=== PATIENT | female | born 1935 | race Caucasian/White ===

== ENCOUNTER 2023-07-12 15:59 | Inpatient (IN) | payer OTHER, SELFPAY ==
[2023-07-12] VITALS (9 sets, daily range): BP systolic 132–188; BP diastolic 63–108; BMI 27.7
[2023-07-12 10:56] LABS: % Basophils 1.4 % (0-2); % Eosinophils 4.9 % (0-6); % Immature Granulocytes 0.5 % (0-0.5); % Lymphocytes 11.4 % (20.5-51.1); % Monocytes 11.5 % (1.7-9.3); % Neutrophils 70.3 % (42.2-75.2); Absolute Basophils 0.1 10^3/uL (0-0.2); Absolute Eosinophils 0.4 10^3/uL (0-0.7); Hematocrit 38.9 % (37.0-47.0); Hemoglobin 13.5 g/dL (12.0-16.0); Mean Corp Hgb Conc. 34.7 g/dL (33.0-37.0); Mean Corpuscular Hgb 31.4 pg (27.0-31.0); Mean Corpuscular Volume 90.5 fL (81.0-99.0); Mean Platelet Volume 10.1 fL (7.4-10.4); Nucleated Red Blood Cells % 0 %; Platelet Count 205 10^3/uL (130-400); Red Cell Dist. Width 12.3 % (11.5-14.5); White Blood Cell Count 8.5 10^3/uL (4.8-10.8)
[2023-07-12 11:12] LABS: ALT (SGPT) 22 U/L (0-35); AST (SGOT) 32 U/L (14-36); Albumin 3.9 g/dl (3.5-5.0); Alkaline Phosphatase 75 U/L (38-126); Blood Urea Nitrogen 17 mg/dl (7-17); Calcium 8.8 mg/dl (8.4-10.2); Carbon Dioxide 27 mmol/L (22-30); Chloride 102 mmol/L (98-107); Estimated Creatinine Clearance 50 ml/min; Glucose 112 mg/dl (70-99); Potassium 3.5 mmol/L (3.5-5.1); Sodium 135 mmol/L (135-145); Total Bilirubin 1.1 mg/dl (0.2-1.3); Total Protein 6.8 g/dl (6.3-8.2); eGFR > 60.00
--- NOTE | 2023-07-12 14:22 | W.PN.UPDATE ---
Update Note
Progress Note Update
Asked to evaluate the patient by the Dr. Pradhan regarding an atrial mass highly suspicious for myxoma.
Apparently the patient was recently admitted to [facility] for a CVA. On echo, an atrial mass was noted. Per the report, it is pedunculated and attached to the atrial septum which is consistent with myxoma characteristics. I do not have images to
review. It was recommended at that time that she have this surgically removed.
It sounds as if she was interested in a second opinion, refused surgery, and was discharged. She presents here for further evaluation.
While she may ultimately require removal, this can be done on an outpatient basis. Will evaluate the patient for surgery in our office on Friday with Dr. Immanuel Younger.
I briefly discussed perioperative expectations with the patient and her family and answered her questions. Will defer further acute management to her care team here. Will reevaluate on Friday for ultimate surgical planning.
This plan was discussed with Dr. Younger who is in agreement.
--- NOTE | 2023-07-12 14:43 | CONSULT.CT ---
Consultation
-
Requesting Provider: Dr. Pradhan
Performing Provider: Alfredito Kaur PA-C
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
Patient History
Physicians
Outpatient Propeller Engineer: Dr. Sheth
History of Present Illness
Patient is an 88-year-old female with a past medical history significant for hypertension, hyperlipidemia, von Willebrand disease, thrombocytopenia, anxiety, GERD, urge incontinence who presented from [facility] for dizziness and left-sided
facial droop to an outside hospital. Ultimately stroke alert was activated and the patient was noted to have acute stroke. As part of her workup echocardiogram was done which showed a large left atrial mass which was broadly attached to the left
atrial septum which is highly suspicious for left atrial myxoma. Given this finding coupled with the fact that she had an acute stroke it was recommended that she have this mass removed. She was also evaluated by hematology during her admission
for her von Willebrand disease. They felt that she did not have von Willebrand's per se but does have underlying platelet dysfunction. Following this the patient had apparent psychiatric event involving visual hallucinations and altered mental
status. Psychiatry evaluated the patient and was started on Depakote. After further discussions with the patient the family was decided that she would seek a second opinion for ultimate surgery. She was discharged from [facility] and reported here
to the ED for further evaluation.
Currently patient is resting comfortably in bed. She is accompanied by family at the bedside. She is very anxious about the diagnosis and is eager to move forward with surgery should it be recommended.
Past Medical History
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
Hypertension
Hyperlipidemia
Questionable von Willebrand disease
Thrombocytopenia
Anxiety
GERD
Urgent continence
Past Surgical History
Appendectomy
Bilateral cataracts
Cystocele
Rectocele
Hysterectomy
Oophorectomy
Tonsillectomy/adenoidectomy
Social History
Alcohol: None
Drug: None
Tobacco: Non-Smoker
Living: Assisted Living
Review of Systems
-
History Source: Patient and Family
General: Reports No Symptoms
HEENT: Reports No Symptoms
Respiratory: Reports No Symptoms
Cardiac: Reports No Symptoms
Abdomen/GI: Reports No Symptoms
: Reports No Symptoms
Musculoskeletal: Reports No Symptoms
Skin: Reports No Symptoms
Neurological: Reports CVA
Physical Exam
Vital Signs
Temp 97.9 F 07/12/23 10:35
Temp route: Oral 07/12/23 10:35
Pulse 71 07/12/23 14:00
Resp Rate 16 07/12/23 14:00
Blood pressure 178/65 07/12/23 14:00
Blood pressure extremity used: Left upper arm 07/12/23 14:00
Position: Lying 07/12/23 14:00
SaO2 98 07/12/23 14:00
Oxygen Mode of Delivery Room air 07/12/23 14:00
Actual Weight 77.5 kg 07/12/23 10:35
Labs
07/12/23 10:49
07/12/23 10:49
Exam
General: Well Developed, Well Nourished and No Apparent Distress
HEENT: Normocephalic and Anicteric
Respiratory: Clear
Cardiac: S1/S2 and Regular Rhythm
GI: Soft
Rectal: Deferred by Provider
Skin: Warm and Dry
Neuro: Awake, Alert and Oriented
Psych: Calm
Assessment / Plan
-
Her left atrial mass is highly suspicious for atrial myxoma based on available reports. Given that the patient is having complications associated with this mass she should have this removed barring contraindications based on comorbidities as well as
her advanced age. The patient tells me that she is absolutely interested in having this removed. This was also recommended by cardiac surgery at [facility] however the patient was interested in a second opinion.
The patient will need to complete preoperative workup including a CTA of the chest abdomen and pelvis. She will also need a left heart cath prior to surgical consideration. She has already had a transesophageal echocardiogram. We will obtain
these images. Recommend cardiology consultation as well as admission to the hospitalist service.
She will need to be anticoagulated given her acute stroke as well as for ultimate cardiopulmonary bypass. However given her questionable history of von Willebrand disease this may be complicated. Recommend hematology consult and low-dose heparin
drip if CTH is negative for hemorrhage and hematology agrees with that plan.
She also has had acute/subacute strokes based on MRI. Given the need for high dose anticoagulation with surgery, will involve neurology for clearance prior to proceeding. Consultation placed.
I discussed perioperative expectations with the patient and her family and answered their questions to their satisfaction. I also discussed this plan with the ED team who will consult hospitalist for admission. Plan on surgery early this week
pending workup, possibly Friday if all data is available. I discussed the above assessment & plan with Dr. Immanuel Younger who is in agreement. We will follow the patient and provide definitive recommendations regarding surgical timing once all data
is available.
Update 1600: Noted that she made her code status DNR on admission. This would need to be rescinded prior to any interventions. Will discuss.
Data Reviewed
-
EKG: Tracing Personally Visualized and interpreted
Labs: Labs Reviewed by me
Total Time Spent with Patient (in minutes): 60
--- NOTE | 2023-07-12 14:45 | ED.GENMED ---
History of Present Illness
General
Chief Complaint: Chest Problem
Source: patient and family
Time Seen by Provider: 07/12/23 10:40
Travel History
Have you had any contact with someone who has COVID-19?: No
Do you have any symptoms of coronavirus? Fever > 100 degrees, chills, cough, shortness of breath, sore throat, loss of taste or smell, muscle aches, or headache?: No
History of Present Illness
History of Present Illness:
88-year-old female who presents for evaluation wanting a second opinion. The patient was recently at [facility] and had been diagnosed with a stroke. She was later by studies to have an atrial myxoma. Patient was to have surgery but did
not want to have it there and after some [id number] decided to leave [place]. She presents here for second opinion as she would rather have her procedure done here. Patient denies any new symptoms. Patient does note that she has a history of
platelet disorder. She states she is not sure of what it is called but was told that it may be similar to von Willebrand's.
Past History
Past History
ED Past Medical History: CVA, HTN, Hypercholesterolemia and Other (Platelet disorder, diabetes insipidus, GERD, COPD)
Phy Exam
Physical Exam
Physical Exam:
CONSTITUTIONAL Patient alert and oriented to person, place and time. Well-appearing. Vital signs reviewed.
HEAD atraumatic, normocephalic.
EYES eyelids normal to inspection, Pupils equally round and reactive to light, Extraocular muscles intact, Conjunctiva normal, Sclera normal.
NECK normal range of motion, Trachea midline, no jugular venous distention.
RESPIRATORY CHEST No respiratory distress noted, Chest expansion equal, Bilateral breath sounds clear.
CARDIOVASCULAR regular rate and rhythm, Heart sounds normal.
ABDOMEN abdomen nontender, Bowel sounds normal. No distention.
BACK normal inspection, no obvious deformities
UPPER EXTREMITY range of motion normal, Motor strength normal, no cyanosis, no edema.
LOWER EXTREMITY range of motion normal, Motor strength normal, no cyanosis, no edema.
NEURO Speech normal, No focal motor deficits, Rogelio coma scale 15, Memory normal, Cranial Nerves intact to screening exam.
SKIN skin warm, dry, and normal in color.
Course
Orders/Labs/Results
Orders:
Orders
07/12/23 10:48
Electrocardiogram (*1) Urgent
Reason for Study: Chest Pain
IV Insert/Care/Rem.- Treatment PRN
07/12/23 10:49
Complete Blood Count/With Diff Urgent
Comprehensive Metabolic Panel Urgent
07/12/23 14:00
CT Head W/o Iv Contrast Urgent
Comment:
Reason For Exam: recent CVA. weakness
07/12/23 14:43
Ct Chest/Abd/Pel Angio W/Wo Iv Routine
Reason For Exam: cardiac surgical planning
07/12/23 Dinner
Cholesterol Lowering
At Your Request: Full Participation
Cholesterol Lowering: Sodium, 2 Gram
07/12/23 15:09
HEMATOLOGY CONSULT Routine
Consulting Provider: Immanuel Lloyd
Was physician already notified: Yes
Reason for consult: ? hx of platelet dysfunction vs. von willebrands? needs a/c for heart Sx
07/12/23 15:19
Consult Cardiology [CARDIOLOGY CONSULT] Routine
Consulting Provider: Yanick Aguilar
Was physician already notified: Yes
Reason for consult: left atrial mass, likely myxoma, planning surgery, needs C
07/12/23 15:41
Admit/Transfer Patient As Directed
Co-Sign Provider:
Level of Care: Inpatient admission
Assign to:: Telemetry
Physician / Group: marisa garland
Diagnosis: cardiac myxoma
Reason for Telemetry: Arrhythmia
Date to Stop Telemetry: 07/15/23
Time to Stop Telemetry: 11:00
Reason for Hospitalization: cardiac myxoma
Expected length of stay greater than two midnights?: Yes
ELOS- Estimated Length of Stay in days: 3
I certify the patient meets the requirements for IP care: Yes
07/12/23 15:42
Code Status As Directed
Resuscitation Status: Do not resuscitate
Reached after discussion with pt or family/Healthcare POA: Yes
Based on pt advanced directive or healthcare POA form: Yes
Decision communicated with: per pt with daughter present
DNR Bracelet Application ONCE
07/12/23 15:51
NEUROLOGY CONSULT Routine
Consulting Provider: Catalina Gomez
Was physician already notified: Yes
Reason for consult: Acute/subacute CVA, LA Mass, need clearance for anticogulation for CPB
07/12/23 17:13
Depakote ER 250 mg PO Q12H
Polyethylene Glycol Powder [Miralax] 8.5 grams PO DAILYPRN PRN
lorazepam 0.25 mg PO TID
07/12/23 17:13
Activity As Directed
Activity Level: With Assistance
Old Records Request [Obtain Records] As Directed
Dates of Information to be Released: any
Type of Information Requested: Entire Record
Comment: Heme consult from Dr todd [phone] [facility]
Pneumatic Compression Sleeves As Directed
Type: Knee high
Vital Signs As Directed
Frequency: Per unit guidelines
Ot Eval And Treat Routine
Pt Eval And Treat Routine
Activity Level: As Tolerated
DX Deep Vein Thrombosis Video Routine
07/12/23 20:00
Losartan [Cozaar] 25 mg PO DAILY@1999
Rosuvastatin Calcium [Crestor] 20 mg PO DAILY@1999
Sennosides [Senokot] 17.2 mg PO DAILY@1999
cycloSPORINE [Restasis 0.05% Ophthalmic Emulsion] 0 drops RIGHT EYE BID
07/12/23 22:00
Saline Mist DOSE drops NASAL HS
fluticasone propionate 1 spray NASAL HS
07/13/23 06:00
Basic Metabolic Panel IN AM
Complete Blood Count/With Diff IN AM
07/13/23 08:00
Calcium Carbonate/Vitamin D3 [Oscal 500 + D] 500 mg PO DAILY
Cyanocobalamin [Vitamin B-12] 1,000 mcg PO DAILY
Losartan [Cozaar] 50 mg PO DAILY
Omeprazole Suspension [Prilosec Baby Oral Suspension] 20 mg PO DAILY
Paroxetine [Paxil] 10 mg PO DAILY
paroxetine HCl 40 mg PO DAILY
07/13/23 12:00
Multivitamin [Theragran] 1 tablet PO NOON
07/14/23 06:00
Basic Metabolic Panel IN AM
Complete Blood Count/With Diff IN AM
07/15/23 06:00
Basic Metabolic Panel IN AM
Complete Blood Count/With Diff IN AM
07/15/23 11:00
DC Protocol for Telemetry ONCE
07/16/23 06:00
Basic Metabolic Panel IN AM
Complete Blood Count/With Diff IN AM
Abnormal Lab Results
07/12/23
10:49
MCH 31.4 H pg
(27.0-31.0)
Absolute Lymphs (auto) 1.0 L 10^3/uL
(1.2-3.4)
Absolute Monos (auto) 1.0 H 10^3/uL
(0.1-0.6)
Lymphocytes % 11.4 L %
(20.5-51.1)
Monocytes % 11.5 H %
(1.7-9.3)
Glucose 112 H mg/dl
(70-99)
07/12/23 10:49
07/12/23 10:49
Vital Signs
Initial and Last Documented VS:
Initial Vital Signs
Temp Pulse Resp BP Pulse Ox
97.9 F 78 20 188/83 98
07/12/23 10:35 07/12/23 10:35 07/12/23 10:35 07/12/23 10:35 07/12/23 10:35
Last Documented Vital Signs
Temp Pulse Resp BP Pulse Ox
98.3 F 83 18 132/84 96
07/12/23 17:19 07/12/23 17:19 07/12/23 17:19 07/12/23 17:19 07/12/23 17:19
MDM/Problems Addressed
MDM/Problems Addressed:
Atrial myxoma, recent CVA
*Pulse Oximetry
Patient hypoxic: no
*EKG
Interpreted by ED Provider?: Yes
Interpretation: normal
Rate: normal
Interval: normal interval
QRS Pattern: normal QRS
Ischemia: no ischemia
*Permit Specialist Interpretation
Rate: normal
Interpretation: normal
Rhythm: sinus
*Critical Care Note
Total Time (30-74mins, 75-104mins- exclusive of procedures): 30 minutes
Data Reviewed
Review of Other/Old Records Reveals: Discharge Summary (Discharge summary obtained and reviewed from [place])
Source: patient
Prescriptions/Medications Considered But Not Given:
Considered Xarelto but CT surgery recommends IV heparin since it is reversible.
Patient Management
Discussion with other providers: Hospitalist and Cosmetic Sales Advisor (Case discussed with CT surgery)
Escalation/DeEscalation of care consider admission/obs:
88-year-old female who presents as above. No acute symptoms but case discussed with CT surgery who recommends admission for likely surgery. Also recommends IV heparin if CT head negative. Hospitalist agreed for heparin. Admit
ED Attending Note
-
Portions of this chart may have been created with voice recognition software.� Occasional wrong word or��sound alike� substitutions may have occurred due to the inherent limitations of voice recognition software.
Discharge Plan
Departure
Patient Disposition: Admit
Date of Disposition: 07/12/23
Time of Disposition: 14:45
Admit to: IVU
Presentation/result/management discussed w/ accepting MD/DO: Hospitalist
Discharge Problem:
Atrial myxoma
Interventions
Interventions:
*Risk Screen - Suicide Last Done: 07/12/23 10:35
*General Assessment Last Done: 07/12/23 10:35
*Neglect/Abuse Screening Last Done: 07/12/23 10:35
*ED COVID-19 Vaccine History Last Done: 07/12/23 11:00
*Nursing Disposition Last Done: 07/12/23 17:11
ED- Cardiac Assessment Last Done: 07/12/23 11:00
ED- Pulmonary Assessment Last Done: 07/12/23 11:00
Discharge Date and Time
Discharge Date/Time: 07/12/23 17:12
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
--- NOTE | 2023-07-12 17:07 | CON.CAR ---
Consultation
Consultation Request
Date/Time Consultation Requested: 07/12/23
Date/Time Consultation Performed: 07/12/23
Requesting Provider: Carisa
Performing Provider: Jeff
Reason for Consultation: LA mass
Medical History
-
Chief Complaint: Recent CVA, LA mass
History of Present Illness:
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 She apparently declined surgery at that time and was discharged back to her residence at [facility].
Presented today because she would like a second opinion regarding the LA mass.
Currently being worked up by CT surgery with tentative plan for mass resection during this admission. We are asked to help facilitate left heart catheterization. Of note CTA of the chest abdomen pelvis here confirmed 3.2 cm left atrial mass.
Overall she seems to be asymptomatic from cardiovascular perspective. Any chest pain or pressure, shortness of breath at rest is observed, no show edema. No palpitations.
Discussed with patient and family at bedside
PMHx:
LA mass
CVA
CAD
HTN
HLD
CKD
platelet disorder NOS
Past Medical History
Past Medical History: Other (as above)
Past Surgical History: Other (as above)
Social History
Tobacco: Non-Smoker
Family History
Family History: Reviewed & Not Pertinent
Allergies / Home Medications
Medication Instructions Recorded Confirmed Type
Aspir-81 81 mg PO DAILY 07/12/23 07/12/23 History
Depakote ER 250 mg PO Q12H 07/12/23 07/12/23 History
biotin 5,000 mcg chewable tablet 5,000 mcg PO DAILY 07/12/23 07/12/23 History
calcium carbonate 600 mg-vitamin 1 tab PO DAILY 07/12/23 07/12/23 History
D3 20 mcg (800 unit) tablet
(Caltrate with Vitamin D3)
cyanocobalamin (vitamin B-12) 1,000 mcg PO .SEE BELOW 07/12/23 07/12/23 History
1,000 mcg tablet
cyclosporine 0.05 % eye drops in a 1 drp RIGHT EYE BID 07/12/23 07/12/23 History
dropperette (Restasis)
fluticasone propionate 50 1 spray intranasal HS 07/12/23 07/12/23 History
mcg/actuation nasal
spray,suspension
lorazepam 0.25 mg PO TID 07/12/23 07/12/23 History
losartan 25 mg tablet 25 mg PO DAILY@199907/12/23 07/12/23 History
losartan 50 mg tablet 50 mg PO DAILY 07/12/23 07/12/23 History
hmudzpwhmoav-nvzsvbbi-nvundd tablet 1 tab PO .MID-DAY 07/12/23 07/12/23 History
omeprazole 20 mg capsule,delayed 20 mg PO DAILY 07/12/23 07/12/23 History
release
paroxetine HCl 10 mg tablet 10 mg PO DAILY 07/12/23 07/12/23 History
paroxetine HCl 40 mg tablet 40 mg PO DAILY 07/12/23 07/12/23 History
polyethylene glycol 3350 17 gram 8.5 g PO DAILYPRN PRN constipation 07/12/23 07/12/23 History
oral powder packet (Miralax)
rosuvastatin 20 mg tablet 20 mg PO DAILY@199907/12/23 07/12/23 History
sennosides 8.6 mg capsule (senna) 17.2 mg PO DAILY@199907/12/23 07/12/23 History
sodium chloride 0.65 % nasal spray 1 spray intranasal HS 07/12/23 07/12/23 History
aerosol (Saline Nasal)
Review of Systems
-
History Source: Patient
All other systems: Negative unless noted
Physical Exam
Vital Signs
Temp Pulse Resp BP Pulse Ox
97.9 F 71 16 178/65 98
07/12/23 10:35 07/12/23 14:00 07/12/23 14:00 07/12/23 14:00 07/12/23 14:00
Lab Results
07/12/23 10:49
07/12/23 10:49
Physical Exam
General: Well Developed
HEENT: Normocephalic
Respiratory: Clear and Non Labored Respirations
Cardiac: S1/S2 and Regular Rhythm
Breast: Deferred by me
GI: Soft
Musculoskeletal: No Edema
Skin: Warm and Dry
Neuro: AO x 3
Psych: Calm
Impression / Plan
-
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
Impression:
LA mass
Recent CVA
CAD
HTN
HLD
CKD
platelet disorder NOS
Plan:
-Recent CVA, workup at [place] including JOSSUE reportedly identified SHARON mass suspected to be myxoma
-Tentatively planned for mass resection with CT surgery to prevent recurrent stroke
-We will arrange for [facility] 07/14/23 to help with surgical planning
Data Reviewed
-
EKG: Tracing Personally Visualized and interpreted
CT Scan: Report Reviewed by me
Labs: Labs Reviewed by me
--- NOTE | 2023-07-12 17:30 | PTCARENOTE ---
Pt. arrived from ED to unit via stretcher with DIL at bedside. Pt. ambulated with assist of one to bed. Pt. with no c/o pain and VSS at this time. Call el with in reach.
[2023-07-12] MEDS: RESTASIS 0.05% OPHTHALMIC EMULSION 1 DROPS RIGHT EYE (20:45)
[2023-07-12] MEDS: CRESTOR 20 MG PO (20:45)
[2023-07-12] MEDS: SENOKOT 17.1999999999999993 MG PO (20:45)
[2023-07-12] MEDS: COZAAR 25 MG PO (20:46)
[2023-07-12] MEDS: DEPAKOTE (12 HR RELEASE) 250 MG PO (20:48)
[2023-07-12] MEDS: OCEAN, SALINE MIST 1 SPRAYS NASAL (21:02)
[2023-07-12] MEDS: ATIVAN 0.25 MG PO (21:08)
[2023-07-13] VITALS (7 sets, daily range): BP systolic 103–172; BP diastolic 54–70; BMI 27.5
[2023-07-13] MEDS: APRESOLINE 5 MG IV ×2 (04:46→11:31)
[2023-07-13 08:10] LABS: % Basophils 0.9 % (0-2); % Eosinophils 7.7 % (0-6); % Immature Granulocytes 0.3 % (0-0.5); % Lymphocytes 15.7 % (20.5-51.1); % Monocytes 12.2 % (1.7-9.3); % Neutrophils 63.2 % (42.2-75.2); Absolute Basophils 0.1 10^3/uL (0-0.2); Absolute Eosinophils 0.6 10^3/uL (0-0.7); Absolute Lymphocytes 1.2 10^3/uL (1.2-3.4); Absolute Neutrophils 4.9 10^3/uL (1.4-6.5); Hematocrit 38.5 % (37.0-47.0); Hemoglobin 12.9 g/dL (12.0-16.0); Mean Corp Hgb Conc. 33.5 g/dL (33.0-37.0); Mean Corpuscular Hgb 30.8 pg (27.0-31.0); Mean Corpuscular Volume 91.9 fL (81.0-99.0); Mean Platelet Volume 10.8 fL (7.4-10.4); Nucleated Red Blood Cells % 0 %; Platelet Count 200 10^3/uL (130-400); Red Blood Cell Count 4.19 10^6/uL (4.20-5.40); Red Cell Dist. Width 12.2 % (11.5-14.5); White Blood Cell Count 7.8 10^3/uL (4.8-10.8)
[2023-07-13] MEDS: ATIVAN 0.25 MG PO ×3 (08:43→22:13)
[2023-07-13] MEDS: PAXIL 40 MG PO (08:43)
[2023-07-13] MEDS: DEPAKOTE (12 HR RELEASE) 250 MG PO ×2 (08:43→20:31)
[2023-07-13] MEDS: PROTONIX 40 MG PO (08:43)
[2023-07-13] MEDS: COZAAR 50 MG PO (08:44)
[2023-07-13] MEDS: RESTASIS 0.05% OPHTHALMIC EMULSION 1 DROPS RIGHT EYE ×2 (08:44→20:32)
[2023-07-13] MEDS: PAXIL 10 MG PO (08:44)
[2023-07-13] MEDS: OSCAL 500 + D 500 MG PO (08:44)
[2023-07-13] MEDS: VITAMIN B-12 1000 MCG PO (08:44)
[2023-07-13 08:58] LABS: Blood Urea Nitrogen 15 mg/dl (7-17); Calcium 8.7 mg/dl (8.4-10.2); Carbon Dioxide 26 mmol/L (22-30); Chloride 102 mmol/L (98-107); Estimated Creatinine Clearance 49 ml/min; Glucose 111 mg/dl (70-99); Potassium 3.9 mmol/L (3.5-5.1); Sodium 135 mmol/L (135-145); eGFR > 60.00
[2023-07-13 09:02] LABS: Hematocrit 36.5 % (37.0-47.0); Hemoglobin 12.5 g/dL (12.0-16.0); Mean Corp Hgb Conc. 34.2 g/dL (33.0-37.0); Mean Corpuscular Hgb 30.9 pg (27.0-31.0); Mean Corpuscular Volume 90.3 fL (81.0-99.0); Mean Platelet Volume 10.6 fL (7.4-10.4); Platelet Count 209 10^3/uL (130-400); Red Blood Cell Count 4.04 10^6/uL (4.20-5.40); Red Cell Dist. Width 12.2 % (11.5-14.5); White Blood Cell Count 7.6 10^3/uL (4.8-10.8)
[2023-07-13 09:23] LABS: APTT 26.7 Sec (23.4-35.0)
[2023-07-13] MEDS: HEPARIN 25000 UNITS/250 ML IV (09:38)
--- NOTE | 2023-07-13 11:11 | W.PN.UPDATE ---
Update Note
Progress Note Update
I had a long discussion with Mrs. velasco and then her daughter Edna on the phone. They both would like to move forward fully understanding that this is a high risk procedure without appreciable gain aside from prevention of strokes in the future. I
did stress that our STS calculator is not designed to convey the risk in this category, but I gave them a 3-5% risk of mortality, 2-3 % risk of stroke, a2-3% risk of renal failure, and 5% risk of bleeding and need for blood products is very likely
given her pre-existing platelet dysfunction. They voiced understanding. Additionally, during and perioperatively, her DNR status will need to be rescinded which they have agreed too. For now, I am still gathering her JOSSUE and awaiting her LHC.
However, the family would like to move forward with me as her surgeon on Friday understanding she would be a 'to follow' case. I will sit down with her and her family once all our investigations are complete.
[2023-07-13] MEDS: THERAGRAN 1 TABLET PO (11:31)
[2023-07-13] MEDS: ATIVAN 0.5 MG PO (12:27)
--- NOTE | 2023-07-13 13:03 | PTCARENOTE ---
Report given to IVU nurse Jill. Pt. transferred via bed by this nurse and PCT. Pt. stable at time of discharge, no c/o pain. Daughter at bedside.
--- NOTE | 2023-07-13 13:06 | W.PN.UPDATE ---
Update Note
Progress Note Update
88yo lady who was admitted with atrial mixoma, awaiting surgical removal. She has series of strokes 1-2 weeks ago.
Patient is unable to give me any meaningful history as she is very anxious, weeping and sobbing but cannot tell me why. I called her daughter who was not available so I left a message to call back.
Patient is on significant amount of psychotropic medications including Paxil 50 mg daily, Ativan 0.25 tid and Depakote 250 bid; Depakote was added recently by a psychiatrist at [facility].
I suspect she has underlying depression or another psychiatric condition but I am awaiting information from her daughter.
For now I will order Depakote level and order 0.5 mg of Ativan as needed for agitation or severe anxiety.
We will F/U through the department.
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
[2023-07-13] MEDS: MIRALAX 8.5 GRAMS PO (16:08)
[2023-07-13 16:48] LABS: APTT 91.8 Sec (23.4-35.0)
[2023-07-13] MEDS: SENOKOT 17.1999999999999993 MG PO (20:31)
[2023-07-13] MEDS: COZAAR 25 MG PO (20:31)
[2023-07-13] MEDS: CRESTOR 20 MG PO (20:33)
[2023-07-13] MEDS: OCEAN, SALINE MIST 1 SPRAYS NASAL (22:12)
[2023-07-13 23:27] LABS: APTT 157.5 Sec (23.4-35.0)
--- NOTE | 2023-07-13 23:47 | CON.ONC ---
Impression
Impression
HX of bleeding tendency w/ abnormal platelet aggregation studies
Plan
Plan
Given urgency for operative intervention would continue with anticoagulation on heparin with plans to judiciously allow for platelet transfusions for any unanticipated bleeding associated with surgery given that preop labs @ note normal CBC and
PTT -- she has no unanticipated evidence of unusual ecchymotic areas at venipuncture sites and denies any abnormal bleeding from GI/ tract. DDAVP would be avoided for risk of vascular thrombosis-- F7 bypass agents would be reasonable if platelet
transfusion were not effective. Will followup during her stay
Patient History
History of Present Illness
88yo WF evaluated earlier in the day for hx of bleeding disorder. 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
Records available thru [employer] system noted evaluation by Dr Hartmann, Heme/Onc @ [facility] for which a hx of abnormal platelet aggregation studies were noted when she was cared for by Dr Pittman 15 + years ago. She herself notes no defineable problem other
than having multiple hematology evaluations none of which coordinated a common diagnosis. She recalls personally having excessive bleeding post T& A @ age 14yo though she did not require transfusions and surgical intervention stopped the bleeding.
She did not require iron or transfusions thruout her menstruating life nor was childbirth X 2 complicated by need for transfusion therapy. In later menopause she underwent YAZMIN/BSO for excessive bleeding for which she self - donor directed pRBCs
and received the day following her procedure. She notes her single sister developed bleeding issues in her later years but recall a specific diagnoses. Neither of her children had bleeding disorder (son in COVID 3 years ago).
Past-Medical/Surgical History
CVA/DJD/CKD/GERD/HTN
Patient Medication
Medication Instructions Recorded Confirmed Last Taken Type
Aspir-81 81 mg PO DAILY Blood Clot 07/12/23 07/12/23 Unknown History
Prevention/Tx
Depakote ER 250 mg PO Q12H 07/12/23 07/12/23 Unknown History
Anxiety/depression/paranoia
biotin 5,000 mcg chewable tablet 5,000 mcg PO DAILY Supplement 07/12/23 07/12/23 Unknown History
calcium carbonate 600 mg-vitamin 1 tab PO DAILY Supplement 07/12/23 07/12/23 Unknown History
D3 20 mcg (800 unit) tablet
(Caltrate with Vitamin D3)
cyanocobalamin (vitamin B-12) 1,000 mcg PO DAILY Supplement 07/12/23 07/12/23 Unknown History
1,000 mcg tablet
cyclosporine 0.05 % eye drops in a 1 drp RIGHT EYE BID Eye Condition 07/12/23 07/12/23 Unknown History
dropperette (Restasis)
fluticasone propionate 50 1 spray intranasal HS Allergies 07/12/23 07/12/23 Unknown History
mcg/actuation nasal
spray,suspension
lorazepam 0.25 mg PO TID ANXIETY/INSOMNIA 07/12/23 07/12/23 Unknown History
losartan 25 mg tablet 25 mg PO DAILY@2000 Blood Pressure 07/12/23 07/12/23 Unknown History
losartan 50 mg tablet 50 mg PO DAILY Blood Pressure 07/12/23 07/12/23 Unknown History
odyfrhkt-bdbc-olrn 8 mg-folic 400 1 tab PO DAILY Supplement 07/12/23 07/12/23 Unknown History
mcg-K 50 mcg-lutein 300 mcg tablet
(Centrum Silver Women)
omeprazole 20 mg capsule,delayed 20 mg PO DAILY Gastrointestinal 07/12/23 07/12/23 07/12/23 History
release Issue
paroxetine HCl 10 mg tablet 10 mg PO DAILY 07/12/23 07/12/23 Unknown History
Anxiety/depression/paranoia
paroxetine HCl 40 mg tablet 40 mg PO DAILY 07/12/23 07/12/23 Unknown History
Anxiety/depression/paranoia
polyethylene glycol 3350 17 gram 8.5 g PO DAILYPRN PRN constipation 07/12/23 07/12/23 Unknown History
oral powder packet (Miralax)
rosuvastatin 20 mg tablet 20 mg PO DAILY@1999 High 07/12/23 07/12/23 Unknown History
Cholesterol
sennosides 8.6 mg tablet (senna) 17.2 mg PO DAILY@1999 Constipation 07/12/23 07/12/23 Unknown History
sodium chloride 0.65 % nasal spray 1 spray intranasal HS nasal 07/12/23 07/12/23 Unknown History
aerosol (Saline Nasal) congestion
Active Medications
Generic Name Dose Route Start Last Admin
Trade Name Freq PRN Reason Stop Dose Admin
Calcium/Vitamin D 500 mg 07/13/23 08:00 07/13/23 08:44
Calcium Carbonate 500 Mg/Vitamin D 5 Mcg (200 Units) Tablet PO 08/10/23 07:59 500 mg
DAILY MARIANA Administration
Cyanocobalamin 1,000 mcg 07/13/23 08:00 07/13/23 08:44
Cyanocobalamin 1,000 Mcg Tablet PO 08/10/23 07:59 1,000 mcg
DAILY MARIANA Administration
Cyclosporine 0 drops 07/12/23 20:00 07/13/23 20:32
Cyclosporine 0.05% (Ophthalmic Emulsion) 10 Drop Droperette RIGHT EYE 08/09/23 19:59 1 drops
BID MARIANA Administration
Divalproex Sodium 250 mg 07/12/23 20:00 07/13/23 20:31
Divalproex 250 Mg Delayed Release (12 Hr) Tablet PO 08/09/23 19:59 250 mg
Q12H MARIANA Administration
Heparin Sodium 6,000 units 07/13/23 08:37
Heparin 80 Units/Kg Rebolus-Do Not Discard IV 08/10/23 08:36
PRN PRN
PTT < OR = 64 seconds
Heparin Sodium 3,000 units 07/13/23 08:38
Heparin 40 Units/Kg Rebolus-Do Not Discard IV 08/10/23 08:37
PRN PRN
PTT = 64.1 to 72.9 seconds
Hydralazine HCl 5 mg 07/13/23 04:39 07/13/23 11:31
Hydralazine 20 Mg/Ml Vial IV 08/10/23 04:38 5 mg
Q4HPRN PRN Administration
sbp>170
Heparin Sodium 25,000 units in 250 mls @ 0 mls/hr 07/13/23 08:30 07/13/23 09:38
Heparin 69439 Units/250 Ml IV 250 mls
PER PROTOCOL MARIANA Administration
Protocol
Per Protocol
Lorazepam 0.25 mg 07/12/23 22:00 07/13/23 22:13
Lorazepam 0.5 Mg Tablet PO 08/09/23 21:59 0.25 mg
TID MARIANA Administration
Lorazepam 0.5 mg 07/13/23 13:15
Lorazepam 0.5 Mg Tablet PO 08/10/23 13:59
Q6H PRN
severe anxiety or agitation
Losartan Potassium 50 mg 07/13/23 08:00 07/13/23 08:44
Losartan 50 Mg Tablet PO 08/10/23 07:59 50 mg
DAILY MARIANA Administration
Losartan Potassium 25 mg 07/12/23 20:00 07/13/23 20:31
Losartan 25 Mg Tablet PO 08/09/23 19:59 25 mg
DAILY@2000 MARIANA Administration
Multivitamins Therapeutic 1 tablet 07/13/23 12:00 07/13/23 11:31
Multivitamin Tablet PO 08/10/23 11:59 1 tablet
NOON MARIANA Administration
Pantoprazole Sodium 40 mg 07/13/23 08:00 07/13/23 08:43
Pantoprazole 40 Mg Delayed Release Tablet PO 08/10/23 07:59 40 mg
DAILY MARIANA Administration
Paroxetine HCl 40 mg 07/13/23 08:00 07/13/23 08:43
Paroxetine 20 Mg Tablet PO 08/10/23 07:59 40 mg
DAILY MARIANA Administration
Paroxetine HCl 10 mg 07/13/23 08:00 07/13/23 08:44
Paroxetine 10 Mg Tablet PO 08/10/23 07:59 10 mg
DAILY MARIANA Administration
Polyethylene Glycol 8.5 grams 07/12/23 17:13 07/13/23 16:08
Polyethylene Glycol Powder 17 Grams Packet PO 08/09/23 17:12 8.5 grams
DAILYPRN PRN Administration
constipation
Rosuvastatin Calcium 20 mg 07/12/23 20:00 07/13/23 20:33
Rosuvastatin (Crestor) 20 Mg Tablet PO 08/09/23 19:59 20 mg
DAILY@1999 MARIANA Administration
Sennosides 17.2 mg 07/12/23 20:00 07/13/23 20:31
Sennosides (Senokot) 8.6 Mg Tablet PO 08/09/23 19:59 17.2 mg
DAILY@1999 MARIANA Administration
Sodium Chloride 0 sprays 07/12/23 22:00 07/13/23 22:12
Sodium Chloride 0.65% Nasal [place] 45 Ml Bottle NASAL 08/09/23 21:59 1 sprays
HS MARIANA Administration
Sodium Chloride 0 flush 07/12/23 19:00
Sodium Chloride 0.9% (Flush) Syringe IV 08/09/23 18:59
PER PROTOCOL MARIANA
Review of Systems
-
History Source: Patient
All Other Systems: Reviewed and Negative
Physical Exam
-
General: No Apparent Distress
HEENT: Moist Mucous Membranes
Cardiology: Normal Sinus Rhythm and Murmur
Pulmonary: Clear
GI: Soft and Normal Bowel Sounds
Extremities: Pulses Present
Neurology: Non Focal
Labs
Lab Results
WBC 7.6 10^3/uL (4.8-10.8) 07/13/23 08:47
RBC 4.04 10^6/uL (4.20-5.40) L 07/13/23 08:47
Hgb 12.5 g/dL (12.0-16.0) 07/13/23 08:47
Hct 36.5 % (37.0-47.0) L 07/13/23 08:47
MCV 90.3 fL (81.0-99.0) 07/13/23 08:47
MCH 30.9 pg (27.0-31.0) 07/13/23 08:47
MCHC 34.2 g/dL (33.0-37.0) 07/13/23 08:47
RDW 12.2 % (11.5-14.5) 07/13/23 08:47
Plt Count 209 10^3/uL (130-400) 07/13/23 08:47
MPV 10.6 fL (7.4-10.4) H 07/13/23 08:47
Abs Immat Gran (auto) 0.0 10^3/uL (0-0.05) 07/13/23 06:53
Absolute Neuts (auto) 4.9 10^3/uL (1.4-6.5) 07/13/23 06:53
Absolute Lymphs (auto) 1.2 10^3/uL (1.2-3.4) 07/13/23 06:53
Absolute Monos (auto) 1.0 10^3/uL (0.1-0.6) H 07/13/23 06:53
Absolute Eos (auto) 0.6 10^3/uL (0-0.7) 07/13/23 06:53
Absolute Basos (auto) 0.1 10^3/uL (0-0.2) 07/13/23 06:53
Immature Gran % 0.3 % (0-0.5) 07/13/23 06:53
Neutrophils % 63.2 % (42.2-75.2) 07/13/23 06:53
Lymphocytes % 15.7 % (20.5-51.1) L 07/13/23 06:53
Monocytes % 12.2 % (1.7-9.3) H 07/13/23 06:53
Eosinophils % 7.7 % (0-6) H 07/13/23 06:53
Basophils % 0.9 % (0-2) 07/13/23 06:53
Creatinine 0.8 mg/dL (0.6-1.0) 07/13/23 06:53
Vital Signs
Vital Signs
Temp Pulse Resp BP Pulse Ox
97.8 F 86 20 118/64 98
07/13/23 19:12 07/13/23 20:31 07/13/23 19:12 07/13/23 20:31 07/13/23 22:39
[2023-07-14] VITALS (16 sets, daily range): BP systolic 115–176; BP diastolic 46–91; PULSE 71; O2SAT 98; BMI 27.9
--- NOTE | 2023-07-14 00:53 | PTCARENOTE ---
Aware she is NPO after mdn. No complaints of pain or discomfort. Anxious and forgetful at times. SR on the monitor in the 60's-80's.
[2023-07-14] MEDS: HEPARIN 25000 UNITS/250 ML IV ×2 (03:35→22:52)
[2023-07-14 05:33] LABS: B.E. 2.8 mmol/L; HCO3 25.9 mmol/L (21-28); O2 Saturation % 97.1 % (94-98); PCO2 34 mmHg (32-35); PO2 80 mmHg (83-108); pH 7.49 (7.35-7.45)
--- NOTE | 2023-07-14 06:24 | W.PN.CT ---
Today's Communication / Plan
-
Plan:
-Cont. current medical management per primary team
-Cont. current meds (heparin gtt, Crestor)
-Will need to hold CROW-I/ARBs (currently on Losartan) at least 24hrs prior to surgery
-Will need reversal of current DNR status
-Ongoing preop evaluation (awaiting [facility] imaging from [facility])
-[facility] today, 07/14/23
-For LA myxoma resection via sternotomy (not a good candidate for non-invasive myxoma resection per Dr. Younger) possibly tomorrow, 07/15/[address] Younger
-Will cont. to closely monitor
Assessment / Plan
-
Assessment:
88 y/o women, resident of [facility], with recent (07/04/23) admission @ [facility] for ischemic stroke with left hemiparesis. Found to have LA mass/Myxoma per [facility] @ [facility].
Presents to -ED on 07/12/23 for second opinion on surgical intervention of LA myxoma
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 left hemiparesis (has resolved)
-Hypertension
-Hyperlipidemia
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
-Thrombocytopenia
-Anxiety
-GERD/Hiatal hernia (large per CTA of chest @ ))
-Chronic urinary incontinence
-Renal calculi
-CKD stage 3A
-OA
-Dry eyes syndrome
-Ambulatory dysfunction
-Anxiety/depression/paranoia (on Paxil, Ativan and Depakote)
-S/p Appendectomy
-S/p Bilateral cataracts
-S/P Cystocele
-S/p Rectocele
-S/p Hysterectomy
-S/P Oophorectomy
-S/p Tonsillectomy/adenoidectomy
Discussed patient care with: Cardiology, Nursing, Respiratory Therapy, Pharmacy and Care Team
Subjective
-
Date of Service: July 14, 2023
Pt offers no complaints, no issues overnight
Objective Data
-
APTT Cancelled 07/14/23 06:00
Vital Signs
Vital Signs
Temp Pulse Resp BP Pulse Ox
97.7 F 64 18 152/67 96
07/14/23 03:38 07/14/23 06:00 07/14/23 03:38 07/14/23 03:34 07/14/23 03:38
CT Intake/Output/Weight
07/13/23 07/13/23 07/14/23
06:59 18:59 06:59
Intake Total 480 / 480 950 / 950
Output Total 500 / 500 200 / 200
Balance -20 / -20 750 / 750
SaO2: 96 (RA)
Physical Exam
-
General: Awake, Oriented and AOx3
Cardiovascular: Regular rate & rhythm and No Murmurs
Respiratory: Clear
Extremities: No Edema
Data Reviewed
-
Lab Results: Results Reviewed
Medications: Active Meds Reviewed
Chest X-Ray: Report Reviewed and Image Reviewed
ECG: Report Reviewed and Image Reviewed
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
--- NOTE | 2023-07-14 07:29 | W.PN.NEURO.1 ---
Today's Communication / Plan
-
.
Subjective/Objective
Subjective Data
Date of Service: July 14, 2023
CC: none
HPI: This is an 88-year-old woman who presented to [facility] on 07/12/2023. Ms. Terry was diagnosed with bihemispheric strokes and LA mass at [facility] in 07/04/2023.
Ms. Terry reports no complaints. She had nor recurrent since the admission. No reports of headache, change in vision, motor or sensory deficits.
EKG: NSR
Labs:INR-1.11.
CT head(07/12/2023)-large old right basal ganglia infarct. � There is mild subcortical, deep, and periventricular white matter low-attenuation, compatible with changes of chronic small vessel ischemic disease.
PMZ: bihemispheric strokes(07/04/2023), vWD, LA myxoma, CAD, HTN, DLP, CKD, hiatal hernia, nephrolithiasis, VIVIEN, insomnia
PSH: BL cataract surgery, YAZMIN, cystocele/rectocele repair, appendectomy, tonsillectomy, BL myringostomy
FH: mother-colon CA; vWD
SH: nonsmoker; ; lives at [facility], retired
All: Clarithromycin,
ROS:Constitutional: Negative. Negative for chills, fever and unexpected weight change.
HENT: Negative for ear pain, hearing loss, tinnitus and trouble swallowing.
Eyes: Negative. Negative for photophobia, pain and visual disturbance.
Respiratory: Negative for cough, choking and shortness of breath.
Cardiovascular: Negative for chest pain, palpitations and leg swelling.
Gastrointestinal: positive for constipation.
Endocrine: Negative. Negative for cold intolerance.
Genitourinary: Negative for dysuria, flank pain and urgency.
Musculoskeletal: Negative for back pain, gait problem, neck pain and neck stiffness.
Skin: Negative for rash.
Allergic/Immunologic: Negative. Negative for immunocompromised state.
Neurological: Negative for dizziness, tremors, seizures, speech difficulty, numbness and headaches.
Psychiatric/Behavioral: positive for insomnia, anxiety
General: Well developed. In no acute distress.
Cardio: Regular rate and rhythm without murmur. Extremities are without cyanosis or edema.
Neuro:
Mental Status: Alert, oriented to person, place, and date. Normal attention and recall. Good fund of knowledge. Follows complex requests across the midline. Comprehension, naming, and repetition intact. Anxious mood
Cranial Nerves: . Pupils are equally round, surgical. EOMs full. Visual peralta full to confrontation. No ptosis. No nystagmus. V1-V3 intact to light touch and pinprick bilaterally, symmetric. Face symmetric. Impairedhearing AU. The palate
elevated well. SCMs and traps 5/5. Tongue midline. No dysarthria.
Motor: Normal bulk and tone. No pronator or arm drift. Strength 5/5 throughout. No clonus.
Reflexes: 3+ throughout the upper extremities and 3+knees. Plantar responses flexor bilaterally.+ BL grasp
Sensory: Normal pinprick, vibration and JPS.
Coordination: No dysmetria or tremor.
Gait: deferred
Bl pes cavus, hummer toes
Assessment and Plan:
I. Subacute bihemispheric embolic strokes
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
III. DLP
-Continue Telemetry monitoring;
-Heparin gtt
-Rosuvastatin 20 mg QHS
-Obtain medical records from [facility]
-Please recall Neurology service with any questions or concerns
I personally reviewed all radiology and labs along with past medical records pertinent to current medical problems. Total time spent in patient care is 35 minutes.
Thank you for allowing us to participate in the care of this patient. Please do not hesitate to contact us with any questions or concerns.
Objective Data
Vital Signs
Temp Pulse Resp BP Pulse Ox
36.8 C 64 16 152/67 97
07/14/23 06:41 07/14/23 06:00 07/14/23 06:41 07/14/23 03:34 07/14/23 06:41
APTT 157.5 Sec (23.4-35.0) H* 07/13/23 22:40
Sodium 135 mmol/L (135-145) 07/13/23 06:53
Potassium 3.9 mmol/L (3.5-5.1) 07/13/23 06:53
BUN 15 mg/dl (7-17) 07/13/23 06:53
Glucose 111 mg/dl (70-99) H 07/13/23 06:53
Calcium 8.7 mg/dl (8.4-10.2) 07/13/23 06:53
Patient Allergies
clarithromycin [From Biaxin] Allergy (Verified 07/12/23 17:29)
Hives
Vital Signs and Labs
-
Vital Signs and Labs:
Vital Signs
Temp Pulse Resp BP Pulse Ox
36.8 C 64 16 152/67 97
07/14/23 06:41 07/14/23 06:00 07/14/23 06:41 07/14/23 03:34 07/14/23 06:41
APTT 157.5 Sec (23.4-35.0) H* 07/13/23 22:40
Sodium 135 mmol/L (135-145) 07/13/23 06:53
Potassium 3.9 mmol/L (3.5-5.1) 07/13/23 06:53
BUN 15 mg/dl (7-17) 07/13/23 06:53
Glucose 111 mg/dl (70-99) H 07/13/23 06:53
Calcium 8.7 mg/dl (8.4-10.2) 07/13/23 06:53
Home Medications
-
Home Medications
Aspir-81 81 mg PO DAILY Blood Clot Prevention/Tx 07/12/23
Depakote ER 250 mg PO Q12H Anxiety/depression/paranoia 07/12/23
biotin 5,000 mcg chewable tablet 5,000 mcg PO DAILY Supplement 07/12/23
calcium carbonate 600 mg-vitamin D3 20 mcg (800 unit) tablet (Caltrate with Vitamin D3) 1 tab PO DAILY Supplement 07/12/23
cyanocobalamin (vitamin B-12) 1,000 mcg tablet 1,000 mcg PO DAILY Supplement 07/12/23
cyclosporine 0.05 % eye drops in a dropperette (Restasis) 1 drp RIGHT EYE BID Eye Condition 07/12/23
fluticasone propionate 50 mcg/actuation nasal spray,suspension 1 spray intranasal HS Allergies 07/12/23
lorazepam 0.25 mg PO TID ANXIETY/INSOMNIA 07/12/23
losartan 25 mg tablet 25 mg PO DAILY@1999 Blood Pressure 07/12/23
losartan 50 mg tablet 50 mg PO DAILY Blood Pressure 07/12/23
ygzzpvqo-joiw-hols 8 mg-folic 400 mcg-K 50 mcg-lutein 300 mcg tablet (Centrum Silver Women) 1 tab PO DAILY Supplement 07/12/23
omeprazole 20 mg capsule,delayed release 20 mg PO DAILY Gastrointestinal Issue 07/12/23
paroxetine HCl 10 mg tablet 10 mg PO DAILY Anxiety/depression/paranoia 07/12/23
paroxetine HCl 40 mg tablet 40 mg PO DAILY Anxiety/depression/paranoia 07/12/23
polyethylene glycol 3350 17 gram oral powder packet (Miralax) 8.5 g PO DAILYPRN PRN constipation 07/12/23
rosuvastatin 20 mg tablet 20 mg PO DAILY@1999 High Cholesterol 07/12/23
sennosides 8.6 mg tablet (senna) 17.2 mg PO DAILY@1999 Constipation 07/12/23
sodium chloride 0.65 % nasal spray aerosol (Saline Nasal) 1 spray intranasal HS nasal congestion 07/12/23
Medications
-
Medications:
Generic Name Dose Route Start Last Admin
Trade Name Freq PRN Reason Stop Dose Admin
Calcium/Vitamin D 500 mg 07/13/23 08:00 07/13/23 08:44
Calcium Carbonate 500 Mg/Vitamin D 5 Mcg (200 Units) Tablet PO 08/10/23 07:59 500 mg
DAILY MARIANA Administration
Cyanocobalamin 1,000 mcg 07/13/23 08:00 07/13/23 08:44
Cyanocobalamin 1,000 Mcg Tablet PO 08/10/23 07:59 1,000 mcg
DAILY MARIANA Administration
Cyclosporine 0 drops 07/12/23 20:00 07/13/23 20:32
Cyclosporine 0.05% (Ophthalmic Emulsion) 10 Drop Droperette RIGHT EYE 08/09/23 19:59 1 drops
BID MARIANA Administration
Divalproex Sodium 250 mg 07/12/23 20:00 07/13/23 20:31
Divalproex 250 Mg Delayed Release (12 Hr) Tablet PO 08/09/23 19:59 250 mg
Q12H MARIANA Administration
Heparin Sodium 6,000 units 07/13/23 08:37
Heparin 80 Units/Kg Rebolus-Do Not Discard IV 08/10/23 08:36
PRN PRN
PTT < OR = 64 seconds
Heparin Sodium 3,000 units 07/13/23 08:38
Heparin 40 Units/Kg Rebolus-Do Not Discard IV 08/10/23 08:37
PRN PRN
PTT = 64.1 to 72.9 seconds
Hydralazine HCl 5 mg 07/13/23 04:39 07/13/23 11:31
Hydralazine 20 Mg/Ml Vial IV 08/10/23 04:38 5 mg
Q4HPRN PRN Administration
sbp>170
Heparin Sodium 25,000 units in 250 mls @ 0 mls/hr 07/13/23 08:30 07/14/23 03:35
Heparin 26405 Units/250 Ml IV 250 mls
PER PROTOCOL MARIANA Administration
Protocol
Per Protocol
Lorazepam 0.25 mg 07/12/23 22:00 07/13/23 22:13
Lorazepam 0.5 Mg Tablet PO 08/09/23 21:59 0.25 mg
TID MARIANA Administration
Lorazepam 0.5 mg 07/13/23 13:15
Lorazepam 0.5 Mg Tablet PO 08/10/23 13:59
Q6H PRN
severe anxiety or agitation
Losartan Potassium 50 mg 07/13/23 08:00 07/13/23 08:44
Losartan 50 Mg Tablet PO 08/10/23 07:59 50 mg
DAILY MARIANA Administration
Losartan Potassium 25 mg 07/12/23 20:00 07/13/23 20:31
Losartan 25 Mg Tablet PO 08/09/23 19:59 25 mg
DAILY@2000 MARIANA Administration
Multivitamins Therapeutic 1 tablet 07/13/23 12:00 07/13/23 11:31
Multivitamin Tablet PO 08/10/23 11:59 1 tablet
NOON MARIANA Administration
Pantoprazole Sodium 40 mg 07/13/23 08:00 07/13/23 08:43
Pantoprazole 40 Mg Delayed Release Tablet PO 08/10/23 07:59 40 mg
DAILY MARIANA Administration
Paroxetine HCl 40 mg 07/13/23 08:00 07/13/23 08:43
Paroxetine 20 Mg Tablet PO 08/10/23 07:59 40 mg
DAILY MARIANA Administration
Paroxetine HCl 10 mg 07/13/23 08:00 07/13/23 08:44
Paroxetine 10 Mg Tablet PO 08/10/23 07:59 10 mg
DAILY MARIANA Administration
Polyethylene Glycol 8.5 grams 07/12/23 17:13 07/13/23 16:08
Polyethylene Glycol Powder 17 Grams Packet PO 08/09/23 17:12 8.5 grams
DAILYPRN PRN Administration
constipation
Rosuvastatin Calcium 20 mg 07/12/23 20:00 07/13/23 20:33
Rosuvastatin (Crestor) 20 Mg Tablet PO 08/09/23 19:59 20 mg
DAILY@1999 MARIANA Administration
Sennosides 17.2 mg 07/12/23 20:00 07/13/23 20:31
Sennosides (Senokot) 8.6 Mg Tablet PO 08/09/23 19:59 17.2 mg
DAILY@1999 MARIANA Administration
Sodium Chloride 0 sprays 07/12/23 22:00 07/13/23 22:12
Sodium Chloride 0.65% Nasal [place] 45 Ml Bottle NASAL 08/09/23 21:59 1 sprays
HS MARIANA Administration
Sodium Chloride 0 flush 07/12/23 19:00
Sodium Chloride 0.9% (Flush) Syringe IV 08/09/23 18:59
PER PROTOCOL MARIANA
[2023-07-14 07:41] LABS: % Basophils 1.5 % (0-2); % Eosinophils 9.5 % (0-6); % Immature Granulocytes 0.5 % (0-0.5); % Monocytes 12.1 % (1.7-9.3); % Neutrophils 58.4 % (42.2-75.2); Absolute Basophils 0.1 10^3/uL (0-0.2); Absolute Eosinophils 0.7 10^3/uL (0-0.7); Absolute Lymphocytes 1.3 10^3/uL (1.2-3.4); Absolute Monocytes 0.9 10^3/uL (0.1-0.6); Absolute Neutrophils 4.3 10^3/uL (1.4-6.5); Hematocrit 34.2 % (37.0-47.0); Hemoglobin 11.9 g/dL (12.0-16.0); Mean Corp Hgb Conc. 34.8 g/dL (33.0-37.0); Mean Corpuscular Hgb 31.5 pg (27.0-31.0); Mean Corpuscular Volume 90.5 fL (81.0-99.0); Mean Platelet Volume 10.2 fL (7.4-10.4); Nucleated Red Blood Cells % 0 %; Platelet Count 209 10^3/uL (130-400); Red Blood Cell Count 3.78 10^6/uL (4.20-5.40); Red Cell Dist. Width 12.5 % (11.5-14.5); White Blood Cell Count 7.3 10^3/uL (4.8-10.8)
[2023-07-14 07:50] LABS: INR 1.11; PT 14.1 Sec (11.4-14.6)
[2023-07-14 07:53] LABS: APTT 103.3 Sec (23.4-35.0)
[2023-07-14 08:16] LABS: ALT (SGPT) 18 U/L (0-35); AST (SGOT) 24 U/L (14-36); Albumin 3.3 g/dl (3.5-5.0); Alkaline Phosphatase 67 U/L (38-126); Blood Urea Nitrogen 21 mg/dl (7-17); Calcium 8.6 mg/dl (8.4-10.2); Carbon Dioxide 25 mmol/L (22-30); Chloride 100 mmol/L (98-107); Estimated Creatinine Clearance 49 ml/min; Glucose 104 mg/dl (70-99); Magnesium 2.2 mg/dl (1.6-2.3); Potassium 3.8 mmol/L (3.5-5.1); Sodium 130 mmol/L (135-145); Total Bilirubin 0.9 mg/dl (0.2-1.3); eGFR > 60.00
[2023-07-14 08:23] LABS: Depakane 46.4 ug/ml (50.0-120.0)
[2023-07-14] MEDS: ATIVAN 0.25 MG PO ×2 (08:29→22:44)
[2023-07-14] MEDS: OSCAL 500 + D 500 MG PO (08:29)
[2023-07-14] MEDS: PAXIL 10 MG PO (08:30)
[2023-07-14] MEDS: PAXIL 40 MG PO (08:30)
[2023-07-14] MEDS: PROTONIX 40 MG PO (08:31)
[2023-07-14] MEDS: VITAMIN B-12 1000 MCG PO (08:31)
[2023-07-14] MEDS: RESTASIS 0.05% OPHTHALMIC EMULSION 1 DROPS RIGHT EYE ×2 (08:31→19:55)
[2023-07-14] MEDS: DEPAKOTE (12 HR RELEASE) 250 MG PO ×2 (08:32→19:55)
[2023-07-14 10:05] LABS: Glycohemoglobin (HgbA1c) 6.1 % (4.0-5.6)
[2023-07-14] MEDS: THERAGRAN PO (12:27)
--- NOTE | 2023-07-14 13:45 | CM ---
Chart reviewed. Patient is independent of ADLS, lives alone in the Independent Living at [facility], 0 DME. Patient is not current with VN.
Reviewed preoperative and postoperative teaching, along with showering instructions with the patient and her DIL. Gave the patient a Cardiac Surgery Book. Patient is agreeable to a home visit by CT Transitional RN. Patient is concerned about
going home alone to the Independent Living. If PT/OT recommend SNF the patient prefers [facility] but if no beds are available she would be agreeable to [facility] or [facility]. Plan is for the patient to return home with CT Transitional RN vs
SNF. CM to follow
[2023-07-14 14:08] LABS: APTT 111.8 Sec (23.4-35.0)
[2023-07-14] MEDS: ATIVAN PO (16:00)
--- NOTE | 2023-07-14 17:50 | ITS.CL.CATH ---
[employer] Development Manager - Catheterization
Cardiac Catheterization
Procedure Report:
LEFT HEART CATHETERIZATION
Date of Procedure: July 14, 2023
Referring: Dr. Immanuel Younger
PROCEDURES:
1. Coronary angiography
INDICATION: Preop atrial myxoma resection
ACCESS: Right radial artery, 5 Welsh sheath
HEMODYNAMICS : (mmHg)
AO (s/d) : 147/63
CORONARY FINDINGS
DOMINANCE: Right
LEFT MAIN: Normal
LEFT ANTERIOR DESCENDING: The LAD arises normally from the left main and runs in the anterior interventricular groove supplying a single sizable diagonal branch. Minor irregularities are noted
CIRCUMFLEX: The circumflex is a medium caliber nondominant vessel that supplies a single obtuse marginal branch.
RIGHT CORONARY ARTERY: The right coronary artery is a medium caliber dominant vessel with minor irregularities over its course. No significant obstructive coronary disease
VENTRICULOGRAPHY: Not done
RADIATION SUMMARY: Fluoro Time (min): 2.8, Dose (mGy): 260, DAP (Gy.cm2) : 17.7
Closure Device: TR band
CONCLUSIONS
1. Nonobstructive coronary disease
Copy to: Dr. Immanuel Younger
--- NOTE | 2023-07-14 17:53 | PTCARENOTE ---
Pt had small hematoma distal to the band, manual pressure held by [employer] RN, aditya and hematoma pressed out. HEmatoma reformed after about 20 min., manual pressure held x 1 min and pressed out again, area distal to band ecchymotic. Dr Groves
aware came to see Pt. Manual pressure held again for 15-20 min. below R band. Pulsox on R fingers 97-99% Site soft now, stable currently.
[2023-07-14] MEDS: SENOKOT 17.1999999999999993 MG PO (19:54)
[2023-07-14] MEDS: CRESTOR 20 MG PO (19:55)
--- NOTE | 2023-07-14 20:45 | PTCARENOTE ---
3ml air removed at 20:04. Pt rang el at 2040 w/ ooze from radial band. 3ml air placed back in band.
--- NOTE | 2023-07-14 22:00 | PTCARENOTE ---
Shanika HIGGINS at bedside. Removed remaining air in band; 3ml. Removed radial band and held manual pressure for 5 minutes. Dressing applied. Site w/ positive pulse and ecchymotic.
[2023-07-14] MEDS: OCEAN, SALINE MIST 1 SPRAYS NASAL (22:44)
--- NOTE | 2023-07-14 22:55 | PTCARENOTE ---
Heparin gtt resumed at 14ml/hr per protocol. Pt clipped and washed w/ CHG soap.
[2023-07-15] VITALS (45 sets, daily range): BP systolic 53–162; BP diastolic 36–90; BMI 27.9
[2023-07-15 04:23] LABS: % Basophils 1.4 % (0-2); % Immature Granulocytes 0.3 % (0-0.5); % Lymphocytes 17.6 % (20.5-51.1); % Monocytes 12.1 % (1.7-9.3); % Neutrophils 60.6 % (42.2-75.2); Absolute Basophils 0.1 10^3/uL (0-0.2); Absolute Eosinophils 0.7 10^3/uL (0-0.7); Absolute Lymphocytes 1.6 10^3/uL (1.2-3.4); Absolute Monocytes 1.1 10^3/uL (0.1-0.6); Absolute Neutrophils 5.3 10^3/uL (1.4-6.5); Hematocrit 37.9 % (37.0-47.0); Hemoglobin 12.6 g/dL (12.0-16.0); Mean Corp Hgb Conc. 33.2 g/dL (33.0-37.0); Mean Corpuscular Hgb 30.7 pg (27.0-31.0); Mean Corpuscular Volume 92.4 fL (81.0-99.0); Mean Platelet Volume 10.3 fL (7.4-10.4); Nucleated Red Blood Cells % 0 %; Platelet Count 223 10^3/uL (130-400); Red Cell Dist. Width 12.4 % (11.5-14.5); White Blood Cell Count 8.8 10^3/uL (4.8-10.8)
[2023-07-15 04:39] LABS: APTT 154.5 Sec (23.4-35.0)
--- NOTE | 2023-07-15 05:34 | PTCARENOTE ---
B/l BPs performed. 2nd CHG soap bath completed.
[2023-07-15 05:48] LABS: Blood Urea Nitrogen 20 mg/dl (7-17); Calcium 8.8 mg/dl (8.4-10.2); Carbon Dioxide 24 mmol/L (22-30); Chloride 102 mmol/L (98-107); Estimated Creatinine Clearance 44 ml/min; Glucose 101 mg/dl (70-99); Potassium 4.2 mmol/L (3.5-5.1); Sodium 133 mmol/L (135-145); eGFR > 60.00
[2023-07-15] MEDS: BACTROBAN 2% OINTMENT 1 APPLIC NASAL ×2 (06:20→20:56)
[2023-07-15] MEDS: MAGNESIUM OXIDE 500 MG PO (06:20)
[2023-07-15] MEDS: PROTONIX 40 MG PO (06:20)
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
[2023-07-15] MEDS: PAXIL 40 MG PO (10:04)
[2023-07-15] MEDS: ATIVAN PO ×3 (10:04→22:06)
[2023-07-15] MEDS: OSCAL 500 + D PO (10:04)
[2023-07-15] MEDS: DEPAKOTE (12 HR RELEASE) 250 MG PO (10:04)
[2023-07-15] MEDS: PROTONIX PO (10:05)
[2023-07-15] MEDS: PAXIL 10 MG PO (10:05)
[2023-07-15] MEDS: VITAMIN B-12 PO (10:07)
--- NOTE | 2023-07-15 10:50 | PN.CDI ---
Addendum entered and electronically signed by Guillaume Perdue MD 07/15/23 11:06:
I think she should be �CKD 3a based on CCL.
Original Note:
CDI
- -
CDI:
Physician Documentation Request
Admit Date: 07/12/23 15:59
Dear Doctor Iron,
Please review the following and provide your response in the progress notes.
Clinical Indicators:
- Progress notes indicate CKD 3a
Laboratory Tests
07/12/23 07/14/23 07/15/23
10:49 07:26 04:10
Creatinine 0.8 0.8 0.9
eGFR > 60.00 > 60.00 > 60.00
Please clarify which of the following accurately represents the patient's current renal status:
CKD 2, CKD 3a ruled out
CKD 3a remains a known or suspected condition for this patient and is further supported by (include additional documentation in the medical record)
Other
Stages of Chronic Kidney Disease*
Level Description GFR
G1 Normal or High >90
G2 Mildly decreased 60-89
G3a Mildly to moderately decreased 45-59
G3b Moderately to severely decreased 30-44
G4 Severely decreased 15-29
G5 Kidney failure <15
Use of terms such as suspected, likely, concern for, or probable (associated with a specific diagnosis that is being evaluated, monitored, or treated as if it exists) are acceptable and can be coded in the inpatient setting, when documented at the
time of discharge.
Thank you,
Jean Dunham RN
CDI Specialist
Please use your independent medical judgment in providing your response.
*Source: Kidney Disease: Improving Global Outcomes (KDIGO) 2012
--- NOTE | 2023-07-15 10:51 | CM ---
Chart reviewed. Patient is waiting for surgery. Patient is independent of ADLS, lives alone in a apartment at [facility], 0 DME. Daughter is concerned about patient returning home alone after surgery. Patient will need a
PT/OT evaluation to see if patient will have any skilled needs. Plan is for the patient to return home with CT Transitional RN vs SNF. Patient would prefer the [facility], but if there is no bed available, they would be interested
in [facility] or [facility]. CM to follow
[2023-07-15] MEDS: RESTASIS 0.05% OPHTHALMIC EMULSION RIGHT EYE (11:00)
--- NOTE | 2023-07-15 12:46 | W.CVOR.SURPR ---
CVOR Surgeon Immed Pre Op
-
I have examined this patient prior to performance of the scheduled procedure.
The patient's condition is unchanged from the time of the dictated/written History and
Physical and the patient is able to undergo the scheduled procedure.
High cardiac surgery, LA Myxoma resection and SHARON E (elevated CHADSVASc Score)
[2023-07-15] MEDS: THERAGRAN PO (13:07)
--- NOTE | 2023-07-15 13:08 | PTCARENOTE ---
Pt cleansed with 2% CHG wipes as ordered. Report given to Milton HAYES, in CVICU.
--- NOTE | 2023-07-15 13:35 | PTCARENOTE ---
Pt transferred to OR
[2023-07-15 14:12] LABS: Urine Albumin Negative (Neg - Trace); Urine Bilirubin Negative (Negative); Urine Character Clear (Clear); Urine Color Yellow; Urine Glucose Negative (Negative); Urine Ketone Trace (Negative); Urine Leukocyte Negative (Negative); Urine Nitrite Negative (Negative); Urine Occult Blood Trace (Negative); Urine Urobilinogen Negative (Neg - 1+)
[2023-07-15 14:28] LABS: ACT+ - POC 96 Seconds (82-134)
[2023-07-15 14:29] LABS: B.E. - POC 0.4 mmol/L; Glucose - POC 101 mg/dl (65-99); HCO3 - POC 25 mmol/L (21-29); Hematocrit - POC 34 % PCV (37-47); Hemodilution- POC No; Hemoglobin Calculated - POC 11.5; Ionized Calcium - POC 1.14 mmol/L (1.12-1.27); O2 Saturation %Calculated-POC 99.9 5 (92-96); PCO2 - POC 41 mmHg (35-45); PO2 - POC 257 mmHg (80-100); Potassium - POC 3.5 mmol/L (3.6-5.0); Sodium - POC 141 mmol/L (135-145)
[2023-07-15 14:34] LABS: Urine Red Blood Cell 0-2 /HPF (0-2); Urine White Cell 0-2 /HPF (0-5)
[2023-07-15 15:03] LABS: ACT+ - POC 541 Seconds (82-134)
--- NOTE | 2023-07-15 15:15 | CON.INTV ---
Consultation
Consultation Request
Date/Time Consultation Requested: 07/15/2023-4 PM
Date/Time Consultation Performed: 07/15/2023-4:30 PM
Requesting Provider: Cardiovascular surgery
Performing Provider: Dr. Womack
Reason for Consultation: Postoperative critical care management
Medical History
-
Chief Complaint: Left atrial myxoma
History of Present Illness:
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
postoperative ventilator/critical care management 07/15/2023. Patient is sedated and review of systems was unobtainable. Operative records were reviewed.
Past Medical History
Past Medical History: None (Hypertension. Hyperlipidemia. Chronic kidney disease. Platelet disorder. Recent CVA-06/2023. GERD. DI. COPD. Anxiety. Depression. Psychosis. Insomnia. Ambulatory dysfunction.)
Past Surgical History: None (Cataract. Hysterectomy. Cystocele/rectocele repair. Appendectomy. Tonsillectomy. Myringotomy tubes.)
Social History
Tobacco: Non-smoker
Alcohol: None
Drug: None
Living: Alone and Other ([facility])
Occupational Exposures: No known asbestos exposure
Environmental Exposures: No known tuberculosis exposure
Family History
Family History: Reviewed & Not Pertinent and Other (Mother-von Willebrand's. Sister von Willebrand's. Mother colon cancer.)
Allergies / Home Medications
Allergies
Allergy/AdvReac Type Severity Reaction Status Date / Time
clarithromycin [From Biaxin] Allergy Hives Verified 07/12/23 17:29
Home Medications
Medication Instructions Recorded Confirmed Last Taken Type
Aspir-81 81 mg PO DAILY Blood Clot 07/12/23 07/12/23 Unknown History
Prevention/Tx
Depakote ER 250 mg PO Q12H 07/12/23 07/12/23 Unknown History
Anxiety/depression/paranoia
biotin 5,000 mcg chewable tablet 5,000 mcg PO DAILY Supplement 07/12/23 07/12/23 Unknown History
calcium carbonate 600 mg-vitamin 1 tab PO DAILY Supplement 07/12/23 07/12/23 Unknown History
D3 20 mcg (800 unit) tablet
(Caltrate with Vitamin D3)
cyanocobalamin (vitamin B-12) 1,000 mcg PO DAILY Supplement 07/12/23 07/12/23 Unknown History
1,000 mcg tablet
cyclosporine 0.05 % eye drops in a 1 drp RIGHT EYE BID Eye Condition 07/12/23 07/12/23 Unknown History
dropperette (Restasis)
fluticasone propionate 50 1 spray intranasal HS Allergies 07/12/23 07/12/23 Unknown History
mcg/actuation nasal
spray,suspension
lorazepam 0.25 mg PO TID ANXIETY/INSOMNIA 07/12/23 07/12/23 Unknown History
losartan 25 mg tablet 25 mg PO DAILY@1999 Blood Pressure 07/12/23 07/12/23 Unknown History
losartan 50 mg tablet 50 mg PO DAILY Blood Pressure 07/12/23 07/12/23 Unknown History
hipktlgf-wrsg-zhtg 8 mg-folic 400 1 tab PO DAILY Supplement 07/12/23 07/12/23 Unknown History
mcg-K 50 mcg-lutein 300 mcg tablet
(Centrum Silver Women)
omeprazole 20 mg capsule,delayed 20 mg PO DAILY Gastrointestinal 07/12/23 07/12/23 07/12/23 History
release Issue
paroxetine HCl 10 mg tablet 10 mg PO DAILY 07/12/23 07/12/23 Unknown History
Anxiety/depression/paranoia
paroxetine HCl 40 mg tablet 40 mg PO DAILY 07/12/23 07/12/23 Unknown History
Anxiety/depression/paranoia
polyethylene glycol 3350 17 gram 8.5 g PO DAILYPRN PRN constipation 07/12/23 07/12/23 Unknown History
oral powder packet (Miralax)
rosuvastatin 20 mg tablet 20 mg PO DAILY@1999 High 07/12/23 07/12/23 Unknown History
Cholesterol
sennosides 8.6 mg tablet (senna) 17.2 mg PO DAILY@2000 Constipation 07/12/23 07/12/23 Unknown History
sodium chloride 0.65 % nasal spray 1 spray intranasal HS nasal 07/12/23 07/12/23 Unknown History
aerosol (Saline Nasal) congestion
Review of Systems
-
Unable to Obtain full review of systems at this time due to: Other (Per HPI)
Vitals / Labs / Diagnostic Testing
Vital Signs
Temp Pulse Resp BP Pulse Ox
98.5 F 77 16 162/59 96
07/15/23 11:21 07/15/23 12:00 07/15/23 11:21 07/15/23 11:23 07/15/23 11:21
Lab Data
07/15/23 04:10
07/15/23 04:10
Laboratory Results
07/15/23 07/15/23 07/15/23
04:00 04:10 11:40
APTT Cancelled 154.5 H* Cancelled
Diagnostic Testing:
Physical Exam
-
Exam:
Well-nourished and well-developed in no apparent distress
HEENT-atraumatic, normocephalic, oral tracheal intubation
Heart-regular rate and rhythm-no murmurs, rubs or gallops
Chest-clear to auscultation, no wheezes, crackles, median sternotomy bandage is not removed
Abdomen soft nondistended
Extremities-no cyanosis, clubbing, edema and good peripheral pulses
Integument-intact, no rashes, lesions or ecchymosis
Neurologically not alert, not oriented, not moving any of his extremities sedated on a ventilator
Assessment
-
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
postoperative ventilator/critical care management 07/15/2023.
Assessment
Left atrial myxoma
Status post myxoma resection versus clot removal and left atrial appendage clip placement-Dr. Younger 07/15/2023
Recent CVA 07/04/2023
Platelet disorder-von Willebrand type
Conditions present prior to admission:
Hypertension.
Hyperlipidemia.
Chronic kidney disease.
Platelet disorder.
Recent CVA-06/2023.
GERD.
DI.
COPD.
Anxiety.
Depression.
Psychosis.
Insomnia.
Ambulatory dysfunction.
Cataract. Hysterectomy. Cystocele/rectocele repair. Appendectomy. Tonsillectomy. Myringotomy tubes.
Plan
Ventilator settings reviewed
FiO2 will be weaned
Minute ventilation will be adjusted
Arterial blood gases will be monitored
Spontaneous breathing trial will be attempted with hopeful extubation after anesthesia/sedation wear off
Pulmonary artery catheter parameters will be followed
Pressors/antihypertensive/inotropes/diuretics will be provided as needed
Monitor chest tube output
Monitor hemoglobin
Monitor platelet count and coags
Transfuse blood product if needed
CT surgery following chest tubes
Monitor blood sugar
Insulin drip per protocol
Aspiration precautions
VAP prevention protocol
DVT prophylaxis
Early nutrition
Early mobilization
Critical care statement: A total of 50 minutes of critical care time was provided for this patient today. This includes management of ventilator, spontaneous breathing trial, arterial blood gases, pressors, of unstable vital signs, evaluation of the
patient at bedside, reviewing the patient's pertinent medical records including radiographs, microbiology, laboratory evaluations, and discussion with primary team and critical care nursing.
Diagnostic data:
CT head 07/12/2023-no acute intracranial abnormalities, chronic senescent changes
CT chest abdomen and pelvis 07/12/2023-large left atrial cardiac mass, possible myxoma, no acute abnormalities in the chest abdomen or pelvis, large hiatal hernia with intrathoracic stomach
Cardiac catheterization 07/12/2023-nonobstructing CAD
Data Reviewed
-
EKG: Report reviewed by me
Radiology: Report reviewed by me
CT Scan: Report reviewed by me
Medical Tests (Nuc Med, Echo etc): Report reviewed by me
Labs: Labs reviewed by me
Old Records: Reviewed
Critical Care Time (in minutes): 50
[2023-07-15 15:26] LABS: B.E. - POC 2.5 mmol/L; Glucose - POC 91 mg/dl (65-99); HCO3 - POC 26 mmol/L (21-29); Hematocrit - POC 23 % PCV (37-47); Hemodilution- POC Yes; Hemoglobin Calculated - POC 7.8; Ionized Calcium - POC 0.86 mmol/L (1.12-1.27); PCO2 - POC 37 mmHg (35-45); PO2 - POC 435 mmHg (80-100); Potassium - POC 4.2 mmol/L (3.6-5.0); Sodium - POC 136 mmol/L (135-145); pH - POC 7.46 (7.35-7.45)
[2023-07-15 15:27] LABS: ACT+ - POC 676 Seconds (82-134)
[2023-07-15 16:02] LABS: ACT+ - POC 123 Seconds (82-134)
[2023-07-15 16:07] LABS: B.E. - POC -0.2 mmol/L; Glucose - POC 123 mg/dl (65-99); HCO3 - POC 25 mmol/L (21-29); Hematocrit - POC 28 % PCV (37-47); Hemodilution- POC Yes; Hemoglobin Calculated - POC 9.4; Ionized Calcium - POC 1.19 mmol/L (1.12-1.27); PCO2 - POC 42 mmHg (35-45); PO2 - POC 569 mmHg (80-100); Potassium - POC 4.2 mmol/L (3.6-5.0); Sodium - POC 139 mmol/L (135-145); pH - POC 7.39 (7.35-7.45)
--- NOTE | 2023-07-15 16:37 | W.PN.CT.SURG ---
CT Surgery Operative Note
-
CARDIAC SURGERY OPERATIVE REPORT
Preoperative Diagnosis: Left atrial mass with recent cerebral vascular emboli
Postoperative Diagnosis: Same
Procedure(s) Performed:
1. Standard sternotomy with aortic and bicaval cannulation
2. Resection of left atrial mass
3. Reinforcement of interatrial septum with 4-0 prolene in a running double layer fashion
4. Ligation of left atrial appendage with 35mm
5. Placement temporary ventricular pacing wire
6. Transesophageal echocardiography
Date of Surgery: 07/15/23
Comorbidities:
1. Recent cerebrovascular emboli with multiple areas of strokes in her brain, likely embolic
2. 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
3. Von Willebrand's disease
4. Hypertension
5. Hyperlipidemia
6. CKD stage III
7. Large hiatal hernia with most of her stomach in her right chest
8. Anxiety and depression/paranoia
9. Osteoarthritis
10. Nonobstructive CAD
Attending Surgeon: Immanuel Younger MD, MS
Assistants: Pedro Kaur PA-C (present and necessary to assistant basketball coach, retraction, suction, exposure, suture management, and wound closure under my direction)
Anesthesiology: Ravi Austin MD and Edwin Blevins CRNA
Scrub and Circulating RNs: Ree Esquivel RN, Waldemar Copeland RN
Building Maintenance Mechanic: Annette Salazar CCP
Anesthesia: GETA
EBL: per perfusion records
Products: 1 unit prbc
CPB Time: 35 minutes
Aortic Cross Clamp Time: 27 minutes
Indication(s) for Procedures: This is an 88-year-old female with a known blood disorder. She presented with multiple CVAs and with a facial droop and has since recovered. She was found to have a large left atrial mass that was consistent with a
myxoma. Given her risk for ongoing CVAs and risk of bleeding while taking anticoagulation, she is recommended for operative intervention for removal of this mass. She was considered to be a high risk patient given her age and bleeding disorder,
both she and her daughter accepted the risks and so we proceeded.
Findings: Her left ventricular ejection fraction preoperatively was normal at 65%. There were no regional wall motion abnormalities pre and post surgery. Her left ventricular ejection fraction postoperatively was 65%, again with no regional wall
motion abnormalities. Left atrial appendage was verified to be free of any thrombus or debris preoperatively. He was found to be totally occlusive with a 35 mm clip applied flush the base. The left atrial mass was attached to the intra-atrial
septum at the location of the patent salmon ovale remnant, it was very gelatinous in that structure and was removed in several large pieces. The stalk at the intra-atrial septum was also shaved off and then reinforced with 4-0 Prolene in a double
layer running fashion. Test dosing of antegrade into the root revealed no shunt. Filling of the heart on the right side revealed no shunt. The left ventricle is thoroughly inspected as was the mitral valve, no residual mass remnants or fragments
were left behind. All pulmonary veins were inspected and found to be free of any debris. She was anemic on cardiopulmonary bypass and so did receive 1 unit of PRBCs. However, from a bleeding standpoint she appeared to be acceptable and so no
platelet transfusions were given.
Specimen(s): Left atrial mass.
Prosthesis: 35 mm [employer] Penditure SHARON E, SN [id number].
Description of Procedure: The patient was taken to the operating room. Their identity and procedure to be performed were verified and they were positioned supine on the operating table. Induction via general anesthesia with endotracheal intubation
was performed and central venous access and arterial monitoring were inserted. A preoperative transesophageal echocardiogram was performed to assess cardiac function and valvular function. The patient was then prepped and draped from chin to feet in
a sterile fashion. A preoperative time-out was performed with all members of the team present. A midline chest incision was performed along with median sternotomy. The innominate vein was isolated. Full heparinization was given (a total of 35,000
units). We created a pericardial well. The aortic cannulation site was chosen where it was soft, pliable, and free of calcium. Cannulation was performed with an arterial cannula in the ascending aorta, angled metal tip cannular in the superior vena
cava and straight bendable cannula in the inferior vena cava. The arterial cannula line had an appropriate bounce and correlating pressures. Next, a root vent/antegrade cannula was inserted into the ascending aorta. The ACT was confirmed to be over
400 and retrograde autologous priming was performed before commencing cardiopulmonary bypass. The pulmonary artery was away from the aorta to facilitate a clamp site. Sondergaard�s groove was developed after creating the oblique sinus. A
total of 1.0L initial dose of antegrade Del-Nido cardioplegia solution was given and planned for re-dosing every 75 minutes as necessary. There was rapid electro-mechanical arrest of the heart at 180 cc of cardioplegia. The left ventricle was
observed for distention on echocardiogram and manual palpation. Cold slush was placed into a lap on the RV and we systemically cooled to 34 degrees centigrade. With the heart arrested, the heart was mobilized and moved medially towards wv. The
left atrial appendage was then measured and ligated with a 35 mm device.
Carbon dioxide was used to flood the field. The left atrial mass was accessed via the intra-atrial groove. Using pledgeted 4-0 Prolene's, the left atrium was exposed in an everting fashion lifting up the intra-atrial septum. The mass was then
gently debrided using a combination of sucker and blunt dissection. The stock at the intra-atrial septum was shaved off and then tested for this integrity. There was no obvious shunt coming from the root or the right atrium. However I decided to
reinforce this area with 4-0 Prolene in a running fashion regardless. The left ventricle was then inspected as was the mitral valve for any synchronous lesions and/or debris/remnants/fragments. None were found. All 4 pulmonary veins were
inspected and no debris was found. The tissue was quite friable and I closed the left atrium single layer using 4-0 Prolene with an SH needle.
De-airing maneuvers were performed and temporary bipolar ventricular pacing wires were placed on the base of the right ventricle. The patient was placed in a Trendelenburg position and flows on bypass were lowered. The aortic cross clamp was removed
and flows were slowly brought back up. The left atrial suture line was hemostatic. Transesophageal echocardiography revealed no evidence of systolic anterior motion and ventricular function was normal. Once de-airing was satisfactory the left
ventricular and root vents were removed. After verifying acceptable parameters, we initiated weaning from cardiopulmonary bypass. Once we were off cardiopulmonary bypass, the venous cannulas was clamped and removed sequentially. A test dose of
protamine was administered and the patient was monitored for any adverse reaction before resuming protamine. Once half of the protamine dose was delivered, pump suckers were turned off and the systolic blood pressure was lowered for aortic
decannulation. The aortic cannula was removed and purse strings were tied down. All cannulation sites were oversewn with a 4-0 prolene. The left atrial suture line was inspected and hemostasis was confirmed. Mediastinal hemostasis was obtained. Two
#24 Bhargav drains were placed within the pericardium with a single #19 Bhargav drain to the right hemithorax. The sternum was approximated with 4 #7 single and 3 #8 double stainless steel wires. Fascia was approximated with #1 vicryl suture. The
subcutaneous, dermis and epidermis were closed in layers in a running fashion. The skin wound was cleansed and dressed.
All instrument, sponge, and needle counts were confirmed to be correct x 2 at the end of the operation. The patient was transferred to the cardiac intensive care unit in critical but stable condition.
I, Dr. Immanuel Younger, was present, scrubbed for, and performed all critical elements of this procedure.
Immanuel Younger MD, MS
Cardiothoracic Surgeon
[facility]
This dictation was created using the [employer] dictation system. Please excuse any grammatical, typographical, or 'sound alike' errors
--- NOTE | 2023-07-15 16:50 | PTCARENOTE ---
Patient received from cvor intubated and sedated. Usual lines. No swan. NSR. Extremely labile BP's on levo and cardene intermittently See flowrecord for remaining assessments.
[2023-07-15 16:56] LABS: Glucose - Point of Care 192 mg/dl (70-99)
[2023-07-15] MEDS: ALBUMIN 5% 250 IV ×2 (17:00→17:45)
[2023-07-15] MEDS: ANCEF 10 IV ×2 (17:00)
[2023-07-15 17:08] LABS: Hematocrit 29.2 % (37.0-47.0); Hemoglobin 10.2 g/dL (12.0-16.0); Platelet Count 184 10^3/uL (130-400)
[2023-07-15 17:17] LABS: HCO3 25.1 mmol/L (21-28); Ionized Calcium 1.21 mMOL/L (1.15-1.33); PCO2 37 mmHg (32-35); PO2 264 mmHg (83-108); Potassium 4.2 mMOL/L (3.5-5.1); Sodium 136 mMOL/L (136-145); pH 7.44 (7.35-7.45)
[2023-07-15 17:22] LABS: APTT 28.2 Sec (23.4-35.0); INR 1.45; PT 17.4 Sec (11.4-14.6)
[2023-07-15 17:28] LABS: Blood Urea Nitrogen 15 mg/dl (7-17); Estimated Creatinine Clearance 57 ml/min; Glucose 186 mg/dl (70-99); Magnesium 3.5 mg/dl (1.6-2.3)
[2023-07-15] MEDS: NSS 500 IV (17:46)
[2023-07-15 18:07] LABS: Glucose - Point of Care 208 mg/dl (70-99)
[2023-07-15] MEDS: DILAUDID 0.5 MG IV (18:31)
[2023-07-15] MEDS: VERSED 0.5 MG IV (18:38)
[2023-07-15] MEDS: CALCIUM CHLORIDE 10% SYRINGE 500 MG IV (18:45)
[2023-07-15 19:09] LABS: Glucose - Point of Care 147 mg/dl (70-99)
--- NOTE | 2023-07-15 19:30 | PTCARENOTE ---
Biting down on ett. Instructed to open mouth and did follow direction. Precedex gtt off per PA Ed to further assess neuro status.
--- NOTE | 2023-07-15 20:04 | PTCARENOTE ---
Surgical FORENSIC SERGEANT Lizzy made aware of labile BP's. Continue to titrate meds per protocol.. No dumping from chest tubes
[2023-07-15 20:05] LABS: Glucose - Point of Care 118 mg/dl (70-99)
[2023-07-15] MEDS: PACERONE PO ×2 (20:09→22:07)
[2023-07-15] MEDS: NEURONTIN PO ×2 (20:09→22:06)
[2023-07-15] MEDS: TYLENOL PO ×2 (20:09→22:07)
--- NOTE | 2023-07-15 20:30 | PTCARENOTE ---
Assumed care of pt from manjit RN. Pt intubated s/p CVOR. Precedex infusing per protocol - instructed to turn off @ 1930 per CTPA Ed Wood. Pt opens eyes to voice and following instruction not to bite down on ETT. SR on monitor. HR 70s.
Temporary epicardial v-wire intact and set to 30/13. CVP 4-8. BP 80s-130s/40-50s. Levo titrated up/down per protocol. ETT #8, 24cm @ right lip. Vent set to SIMV - See worklist for full vent settings. POX 100%. Mediastinal CTx2 to -20 suction, no
airleak/tidaling/crepitus at this time. Right pleural CT to -20 suction, no airleak/tidaling/crepitus at this time. CT dressing CDI. Lung sounds diminished. Temperature sensing Bowers catheter CDI. Abdomen soft/nontender. Glycemic protocol followed.
Sternal incision approximated w/ surgical adhesive and open to air. Left radial a-line CDI, zeroed and flushed. Right IJ cordis w/ slick CDI - CVP zeroed and flushed. Right PIV dressing changed & flushes w/o issue. Bear hugger turned off @1940 - pt
reached goal temperature. See worklist for full nursing assessment and interventions. See MAR for medication administration.
[2023-07-15 20:54] LABS: Hematocrit 26.1 % (37.0-47.0); Hemoglobin 9.2 g/dL (12.0-16.0); Mean Corp Hgb Conc. 35.2 g/dL (33.0-37.0); Mean Corpuscular Hgb 31.5 pg (27.0-31.0); Mean Corpuscular Volume 89.4 fL (81.0-99.0); Mean Platelet Volume 9.5 fL (7.4-10.4); Platelet Count 182 10^3/uL (130-400); Red Blood Cell Count 2.92 10^6/uL (4.20-5.40); Red Cell Dist. Width 13.5 % (11.5-14.5); White Blood Cell Count 21.5 10^3/uL (4.8-10.8)
[2023-07-15] MEDS: RESTASIS 0.05% OPHTHALMIC EMULSION 1 DROPS RIGHT EYE (20:56)
[2023-07-15] MEDS: DEPAKOTE (12 HR RELEASE) PO (20:57)
[2023-07-15] MEDS: SENOKOT-S PO (20:57)
[2023-07-15] MEDS: CRESTOR PO (20:57)
[2023-07-15 21:02] LABS: Glucose - Point of Care 86 mg/dl (70-99)
[2023-07-15 21:05] LABS: INR 1.33; PT 16.3 Sec (11.4-14.6)
[2023-07-15 21:06] LABS: APTT 25.4 Sec (23.4-35.0)
[2023-07-15 21:14] LABS: Blood Urea Nitrogen 16 mg/dl (7-17); Calcium 9.2 mg/dl (8.4-10.2); Carbon Dioxide 26 mmol/L (22-30); Chloride 104 mmol/L (98-107); Estimated Creatinine Clearance 44 ml/min; Glucose 91 mg/dl (70-99); Potassium 3.4 mmol/L (3.5-5.1); Sodium 138 mmol/L (135-145); eGFR > 60.00
[2023-07-15 21:27] LABS: B.E. 1.2 mmol/L; Ionized Calcium 1.29 mMOL/L (1.15-1.33); O2 Saturation % 98.6 % (94-98); PCO2 41 mmHg (32-35); PO2 243 mmHg (83-108); pH 7.41 (7.35-7.45)
[2023-07-15] MEDS: ANCEF 5 IV (21:30)
[2023-07-15] MEDS: KCL 50 IV ×2 (21:38→23:46)
[2023-07-15 22:01] LABS: Glucose - Point of Care 88 mg/dl (70-99)
[2023-07-15] MEDS: OCEAN, SALINE MIST NASAL (22:07)
--- NOTE | 2023-07-15 23:28 | PTCARENOTE ---
4-hour post-op labs drawn and sent. 1 unit PRBCs infused per order w/o complication. KCl infusing per electrolyte replacement protocol. SR on monitor. HR 70s. BP remains labile - see VS in worklist. CTPA aware. Up/down on levo per protocol. CVP
4-10. Pt remains intubated. Vent set to SIMV- see work-list for vent settings. POX 100%. CT assessment unchanged from previous. Bowers catheter CDI. Glycemic protocol followed.
[2023-07-16] VITALS (42 sets, daily range): BP systolic 101–151; BP diastolic 35–88; PULSE 69; O2SAT 99; BMI 28.4
[2023-07-16 00:06] LABS: Glucose - Point of Care 103 mg/dl (70-99)
--- NOTE | 2023-07-16 01:15 | PTCARENOTE ---
CTPA Ed Wood at the bedside. Pt able to wiggle toes at this time. Pt attempted to squeeze hands very weakly on command. Pt not opening eyes when asked. VSS.
[2023-07-16 02:08] LABS: Glucose - Point of Care 111 mg/dl (70-99)
--- NOTE | 2023-07-16 03:05 | PTCARENOTE ---
Pt not following commands appropriately or opening eyes to voice. CTPA Ed Wood aware and at bedside. Pt SR on monitor. HR 65-70s. BP 110s-140s/50s-60s. CT assessment unchanged from previous. Pt intubated on SIMV setting - see worklist. POX 100%.
Bowers catheter CDI. Glycemic protocol followed. All surgical sites stable.
--- NOTE | 2023-07-16 03:20 | W.PN.CT ---
Today's Communication / Plan
-
-
Plan:
-Pt slow to awaken from combination of Anesthesia/Precedex/Dilaudid/Versed
-Dr. Younger updated and recommended head CT which was obtained @ ~ 4AM on 07/16/23. Pt apparently woke up after head CT
-Head CT result was relayed to me by Radiologist as, negative for bleed with left occipital infarct acute vs subacute, of note pt's most recent infarct
was also left occipital as well as right parietal
-Pt assessed to be following commands and moving all extremities appropriately after return to unit from CT of head
-Successfully extubated @ 0710 on 07/16/23
-Pt with labile BP postop, until receiving 1u PRBC. H/H stable @ 10.7/31.8, plts 155K
-Currently off all drips but insulin per protocol
-Monitor chest tube drainage: 2med 175/240, R pl 10/10. May be able to d/c R Pl if no significant drainage when OOB today
-D/C a-line
-Transfer to tele phase once of insulin gtt
-D/C velarde catheter
-Maintain cordis
-Cont. current meds
-Encourage use of IS
-Wean off of O2 as tolerated
-OOB into chair
-NG tube placement, intermittent suction per Dr. Younger
Assessment / Plan
-
Assessment:
-S/P Standard sternotomy with aortic and bicaval cannulation/Resection of left atrial mass/Reinforcement of interatrial septum with 4-0 prolene in a running double layer fashion/Ligation of left atrial appendage with 35mm/Placement temporary
ventricular pacing wire, by Dr. Younger, 07/15/23, pod#1
-Left atrial mass suspicious for atrial myxoma (3.2 cm per CTA of chest @ [facility]; 2.2x3.6 cm per intraop JOSSUE)
-Mild MR
-LVEF 55-60%
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 left hemiparesis, 07/04/23 (has resolved)
-Hypertension
-Hyperlipidemia
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
-Thrombocytopenia
-Anxiety
-GERD/Hiatal hernia (large per CTA of chest @ ))
-Chronic urinary incontinence
-Renal calculi
-CKD stage 3A
-OA
-Dry eyes syndrome
-Ambulatory dysfunction
-Anxiety/depression/paranoia (on Paxil, Ativan and Depakote)
-S/p Appendectomy
-S/p Bilateral cataracts
-S/P Cystocele
-S/p Rectocele
-S/p Hysterectomy
-S/P Oophorectomy
-S/p Tonsillectomy/adenoidectomy
-Acute postop blood loss on chronic anemia (transfused 1u PRBC)
-Acute postop labile BP
-Acute postop somnolence concerning for CVA (pt not following commands postop, head CT showed left occipital infarct/no bleed per Radiologist- likely same as previous)
Discussed patient care with: Cardiology, Nursing, Respiratory Therapy, Pharmacy and Care Team
Subjective
Procedure
-S/P Standard sternotomy with aortic and bicaval cannulation/Resection of left atrial mass/Reinforcement of interatrial septum with 4-0 prolene in a running double layer fashion/Ligation of left atrial appendage with 35mm/Placement temporary
ventricular pacing wire, by Dr. Younger, 07/15/23
-
Date of Service: July 16, 2023
Pt slow to awaken from anesthesia/dilaudid and versed. Finally woke up following CT of head to R/O CVA
Objective Data
-
PT 16.3 Sec (11.4-14.6) H 07/15/23 20:45
INR 1.33 07/15/23 20:45
APTT 25.4 Sec (23.4-35.0) 07/15/23 20:45
Vital Signs
Vital Signs
Temp Pulse Resp BP Pulse Ox
98.8 F 72 12 137/60 100
07/16/23 03:00 07/16/23 03:00 07/16/23 03:00 07/16/23 03:00 07/16/23 03:00
CT Intake/Output/Weight
07/15/23 07/15/23 07/16/23
06:59 18:59 06:59
Intake Total 350 / 350 548.6 / 1286.0 737.4 / 1286.0
Output Total 215 / 920 705 / 920
Balance 350 / 350 333.6 / 366.0 32.4 / 366.0
SaO2: 100 (6L)
Physical Exam
-
General: Awake, Oriented and AOx3
Cardiovascular: Regular rate & rhythm, No Murmurs, No Rub and No Gallop
Respiratory: Decreased Breath Sounds (at bases, otherwise clear)
Sternum: Stable
Incision: Clean, Dry, Intact and Dressing Intact
Extremities: No Edema
Data Reviewed
-
Lab Results: Results Reviewed
Medications: Active Meds Reviewed
Chest X-Ray: Report Reviewed and Image Reviewed
ECG: Report Reviewed and Image Reviewed
[2023-07-16 03:44] LABS: B.E. 0.3 mmol/L; HCO3 25.4 mmol/L (21-28); Ionized Calcium 1.26 mMOL/L (1.15-1.33); O2 Saturation % 98.7 % (94-98); PCO2 42 mmHg (32-35); PO2 162 mmHg (83-108); pH 7.39 (7.35-7.45)
[2023-07-16 03:46] LABS: Hematocrit 31.8 % (37.0-47.0); Hemoglobin 10.7 g/dL (12.0-16.0); Mean Corp Hgb Conc. 33.6 g/dL (33.0-37.0); Mean Corpuscular Hgb 30.7 pg (27.0-31.0); Mean Corpuscular Volume 91.1 fL (81.0-99.0); Mean Platelet Volume 10.1 fL (7.4-10.4); Platelet Count 155 10^3/uL (130-400); Red Blood Cell Count 3.49 10^6/uL (4.20-5.40); Red Cell Dist. Width 14.3 % (11.5-14.5); White Blood Cell Count 18.3 10^3/uL (4.8-10.8)
[2023-07-16 04:01] LABS: APTT 25.3 Sec (23.4-35.0)
[2023-07-16 04:04] LABS: ALT (SGPT) 14 U/L (0-35); AST (SGOT) 37 U/L (14-36); Albumin 3.6 g/dl (3.5-5.0); Alkaline Phosphatase 50 U/L (38-126); Blood Urea Nitrogen 20 mg/dl (7-17); Calcium 8.6 mg/dl (8.4-10.2); Carbon Dioxide 25 mmol/L (22-30); Chloride 110 mmol/L (98-107); Estimated Creatinine Clearance 44 ml/min; Glucose 93 mg/dl (70-99); Potassium 4.6 mmol/L (3.5-5.1); Sodium 141 mmol/L (135-145); Total Bilirubin 0.7 mg/dl (0.2-1.3); Total Protein 5.7 g/dl (6.3-8.2); eGFR > 60.00
[2023-07-16 04:16] LABS: Glucose - Point of Care 92 mg/dl (70-99)
--- NOTE | 2023-07-16 04:25 | PTCARENOTE ---
CTPA Ed Wood at the bedside. Pt briefly opened eyes on command. Pt wiggling toes on right/left foot. Pt not squeezing right/left hand when asked.
[2023-07-16 04:27] LABS: Phosphorus 4.8 mg/dl (2.5-4.5)
--- NOTE | 2023-07-16 05:41 | PTCARENOTE ---
Pt transported to CT scan - RT at bedside for transfer managing the vent. Pt now back in room. VSS. Pt opening eyes spontaneously and to voice. Pt following commands and THOMPSON.
[2023-07-16 05:52] LABS: INR 1.26; PT 15.6 Sec (11.4-14.6)
[2023-07-16 06:01] LABS: Glucose - Point of Care 120 mg/dl (70-99)
[2023-07-16] MEDS: TYLENOL PO ×2 (06:11→14:53)
[2023-07-16] MEDS: ANCEF 5 IV ×2 (06:11→13:57)
[2023-07-16 06:51] LABS: HCO3 24.3 mmol/L (21-28); Ionized Calcium 1.24 mMOL/L (1.15-1.33); O2 Saturation % 98.7 % (94-98); PCO2 42 mmHg (32-35); PO2 168 mmHg (83-108); pH 7.37 (7.35-7.45)
[2023-07-16 07:01] LABS: O2 Therapy CPAP
--- NOTE | 2023-07-16 07:09 | W.PN.ONC2 ---
Today's Communication / Plan
-
Heme will sign off. Call if needed.
Impression
Impression
HX of bleeding tendency w/ abnormal platelet aggregation studies
Plan
Plan
Platelet transfusions for any unanticipated bleeding associated with surgery given that preop labs @ note normal CBC and PTT.
She has no unanticipated evidence of unusual ecchymotic areas at venipuncture sites per primary medical team.
Stable from heme standpoint. Will sign off. Call with any additional issues.
Subjective/Objective
Chief Complaint
ACS Heme
Subjective
No unexpected bleeding. Working on extubation.
Vital Signs:
Vital Signs
Temp Pulse Resp BP Pulse Ox
98.7 F 71 18 136/52 100
07/16/23 06:00 07/16/23 06:00 07/16/23 06:00 07/16/23 05:47 07/16/23 06:05
Lab Results:
Laboratory Data
WBC 18.3 10^3/uL (4.8-10.8) H 07/16/23 03:28
Hgb 10.7 g/dL (12.0-16.0) L 07/16/23 03:28
Plt Count 155 10^3/uL (130-400) 07/16/23 03:28
PT 15.6 Sec (11.4-14.6) H 07/16/23 03:28
INR 1.26 07/16/23 03:28
APTT 25.3 Sec (23.4-35.0) 07/16/23 03:28
eGFR > 60.00 07/16/23 03:28
Physical Exam
Awake on vent
Cardiology: S1 and S2
Pulmonary: Other (chest tubes)
--- NOTE | 2023-07-16 07:11 | W.PN.INTV ---
Today's Communication / Plan
Recommendations
Tolerated extubation
Wean FiO2
Incentive spirometry
CT head noted
Discontinue arterial line
Insulin drip continues
Assessment
-
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
postoperative ventilator/critical care management 07/15/2023.
Assessment
Left atrial myxoma
Status post myxoma resection versus clot removal and left atrial appendage clip placement-Dr. Younger 07/15/2023
Recent CVA 07/04/2023
Platelet disorder-von Willebrand type
Conditions present prior to admission:
Hypertension.
Hyperlipidemia.
Chronic kidney disease.
Platelet disorder.
Recent CVA-06/2023.
GERD.
DI.
COPD.
Anxiety.
Depression.
Psychosis.
Insomnia.
Ambulatory dysfunction.
Cataract. Hysterectomy. Cystocele/rectocele repair. Appendectomy. Tonsillectomy. Myringotomy tubes.
Plan
Tolerated extubation early this morning
Wean FiO2
Encourage incentive spirometry
Increase activity
Aspiration precautions
Mental status cleared
CT head negative for bleed with old left occipital infarct
Pulmonary artery catheter and arterial line will be removed
Pressors have been weaned
Continue to monitor chest tube output
Follow hemoglobin
Continue to follow platelet count and coags
Transfuse blood product as needed
CT surgery following chest tubes as well
Follow blood sugar
Insulin supplementation continues as needed
Early nutrition
Early mobilization
DVT prophylaxis
Remains on insulin drip and ICU status-return clerk will continue to follow
Reviewed the patient's pertinent medical records including radiographs, microbiology, laboratory evaluations, and discussion with primary team, and critical care nursing.
Diagnostic data:
CT head 07/12/2023-no acute intracranial abnormalities, chronic senescent changes
CT chest abdomen and pelvis 07/12/2023-large left atrial cardiac mass, possible myxoma, no acute abnormalities in the chest abdomen or pelvis, large hiatal hernia with intrathoracic stomach
Cardiac catheterization 07/12/2023-nonobstructing CAD
Subjective Dataa
Subjective Data
Date of Service:
Date of Service: July 16, 2023
Chief Complaint: Assistant Statistician Follow Up and Pulmonary Follow Up
Subjective:
Tolerated extubation earlier this morning, more oriented, events overnight noted, less confused, now alert and oriented without focal complaints, no shortness of breath, chest pain or abdominal pain
Review of Systems
General: Other (Per HPI)
Objective Data
Data Reviewed
Vital Signs / I&O / Oxygen:
Vital Signs
Temp Pulse Resp BP Pulse Ox
98.7 F 71 18 136/52 100
07/16/23 06:00 07/16/23 06:00 07/16/23 06:00 07/16/23 05:47 07/16/23 06:05
Intake and Output
07/15/23 07/16/23 07/17/23
06:59 06:59 06:59
Intake Total 350 / 350 1349.5 / 1349.5
Output Total 1015 / 1015
Balance 350 / 350 334.5 / 334.5
SaO2 [CPAP/PSV] 100
SaO2 [SIMV] 100
SaO2 100
Physical Exam
General: Respiratory Distress (n) and Comfortable
HEENT: Normocephalic, Anicteric and Moist Mucous Membranes
Cardiovascular: Regular Rhythm
Respiratory: Crackles (Rare basilar), Rhonchi (n), Non-Labored Respirations, Accessory Resp Muscle Use (n) and Stridor
GI: Soft, Non Distended and Non Tender
Neurology: Awake, Alert and No Motor Deficits
Skin: Warm, Good Color, Cyanosis (n), Jaundice (n) and Rash
Labs/Micro/Reports
Lab Data
07/16/23 03:28
07/16/23 03:28
Laboratory Results
07/15/23 07/15/23 07/15/23
11:40 16:55 20:45
PT 17.4 H 16.3 H
INR 1.45 1.33
APTT Cancelled 28.2 25.4
pH 7.44
pCO2 37 H
pO2 264 H
HCO3 25.1
O2 Delivery Level
07/15/23 07/16/23 07/16/23
20:46 03:28 06:36
PT 15.6 H
INR 1.26
APTT 25.3
pH 7.41 7.39 7.37
pCO2 41 H 42 H 42 H
pO2 243 H 162 H 168 H
HCO3 26.0 25.4 24.3
O2 Delivery Level Cpap
--- NOTE | 2023-07-16 07:16 | PTCARENOTE ---
ABGs reviewed with CVPAs and TANK TRUCK ENGINE MECHANIC; respiratory at bedside and pt extubated; 6L NC 100%.
--- NOTE | 2023-07-16 07:18 | W.PN.ANS.POP ---
Anesthesia Post Operative
- Anesthesia Post Op Note
Vital Signs Stable-See Nursing Note: Yes
Airway Patent: Yes
Adequate Pain Control: Yes
Change in Mental Status: No
Current Postoperative Nausea & Vomiting: No
Anesthesia Complications: No
General Anesthetic Recall: No
Unplanned Admission: No
Post Op Hydration Adequate: Yes
--- NOTE | 2023-07-16 07:30 | PTCARENOTE ---
Received pt from scene shifter RN, pt AAOX3, following all commands and resting comfortably in bed; NSR on monitor and VSS; Epicardial V wire set to back up and no pacing noted; RIJ Cordis/SLIC, Left A-line and PIV x1 all patent, lines leveled
and zeroed; Insulin infusing per Glycemic protocol see flow sheet for details; Lungs diminished, 6L NC 100% and IS to 750; hypoactive bowel sounds; Bowers catheter draining clear yellow urine; palpable pulses throughout; no edema noted; surgical site
C/D/I; see nursing documentation for further details.
--- NOTE | 2023-07-16 07:30 | RESPNOTE ---
07:10 patient extubated and placed on 6 liter nasal cannula 100%.
[2023-07-16] MEDS: OFIRMEV 100 IV (07:56)
[2023-07-16] MEDS: ATIVAN PO ×2 (08:30→15:29)
[2023-07-16] MEDS: DEPAKOTE (12 HR RELEASE) PO (08:30)
[2023-07-16] MEDS: MAGNESIUM OXIDE PO (08:31)
[2023-07-16] MEDS: NEURONTIN PO ×2 (08:31→15:29)
[2023-07-16] MEDS: LOW STRENGTH ASPIRIN PO (08:31)
[2023-07-16] MEDS: LOPRESSOR PO (08:31)
[2023-07-16] MEDS: PAXIL PO ×2 (08:32)
[2023-07-16] MEDS: PROTONIX PO (08:32)
[2023-07-16] MEDS: SENOKOT-S PO (08:32)
[2023-07-16] MEDS: PACERONE PO ×2 (08:32→15:29)
[2023-07-16 08:35] LABS: Glucose - Point of Care 101 mg/dl (70-99)
[2023-07-16] MEDS: BACTROBAN 2% OINTMENT 1 APPLIC NASAL ×2 (08:52→21:00)
[2023-07-16] MEDS: RESTASIS 0.05% OPHTHALMIC EMULSION 1 DROPS RIGHT EYE ×2 (08:57→20:59)
--- NOTE | 2023-07-16 09:35 | PTCARENOTE ---
RIJ SLIC, Left A-line and Right Pleural chest tubes removed per order; V wire insulated. NG Tube placed by CV FABRIC COATING SUPERVISOR, Abdominal Xray obtained and placed on low intermittent suction.
[2023-07-16 10:07] LABS: Glucose - Point of Care 83 mg/dl (70-99)
--- NOTE | 2023-07-16 11:24 | PTCARENOTE ---
Bowers Catheter removed and pt OOB to chair with assistance; NSR on monitor and VSS; assessment unchanged.
[2023-07-16 11:50] LABS: Glucose - Point of Care 89 mg/dl (70-99)
[2023-07-16] MEDS: TORADOL 15 MG IV (11:51)
[2023-07-16 14:04] LABS: Glucose - Point of Care 105 mg/dl (70-99)
--- NOTE | 2023-07-16 14:14 | CM ---
Reviewed chart. Mrs. Terry was transferred to CVICU. Prior to admission she resides alone in an apartment at [facility]. Prior to admission she was independent with ambulation and adls. Will need physical and occupational
therapy evaluations to see if she will need SNF/Rehab. Will also need to obtain auth. with her insurance. Telephone call to [facility] Liaison, ([phone]) to updated her on the need for a SNF/Rehab. Will send referral once therapy evaluations
completed. Medical work-up in progress. The discharge plan is to go to SNF/Rehab. at [facility] if indicated and approved by her insurance when medically stable.
--- NOTE | 2023-07-16 14:29 | W.PN.UPDATE ---
Update Note
Progress Note Update
patient seen chart reviewed. case discussed with nursing. the patient's d in law was in the room. the patient seems to be doing better. she is calmer. she is pleasant. she told me she is happy to be at and choose this locale for her surgery
preferring it to [facility] where she was recently. she is on a significant dose of paxil 50 mg which she has taken for some time for anxiety. she told me she had a 'nervous breakdown ' in the past. i asked her what 'nervous breakdown ' means and she
said she was very very anxious. she was not suicidal. i could not elicit a hx that sounds like foreign. she was placed on depakote more recently but neither she nor d in law could tell me why. d in law thinks for 'anxiety' attempted to call noreen
mrs ndiaye but no answer left message. since she appears to be doing well psychiatrically at this moment in time no changes made but paxil does have a lot of anticholinergic side effects...she c.o constipation which is a common paxil adverse
effect. will look in on her tomorrow. changed the prn of ativan to o.25 rather than o.5 as she is already taking o.25 tid. she has not used the prn and would try to use as little as possible given age
--- NOTE | 2023-07-16 14:51 | W.PN.CARDCBS ---
Today's Communication / Plan
-
Plan:
-Pt is s/p �Resection of left atrial mass, reinforcement of interatrial septum, ligation of left atrial appendage with 35mm, POD # 1
-ECG with NSR
-Slow to awaken from combination of� Anesthesia/Precedex/Dilaudid/Versed, extubated early this AM(07/16/23) around 7AM
-Pt with labile BP postop, until receiving 1u PRBC. H/H stable @ 10.7/31.8, plts 155K
-Currently off all drips but insulin per protocol
-Encourage use of IS
-Wean off of O2 as tolerated
-OOB into chair
-NG tube placement given hiatal hernia and concern for ileus. Possible coffee ground emesis, monitoring.
Impression / Plan
-
Die Operator: Dr Meryl HIGGINS [facility]
Impression:
LA mass
Recent CVA
CAD
HTN
HLD
CKD
platelet disorder NOS
Plan:
-Pt is s/p �Resection of left atrial mass, reinforcement of interatrial septum, ligation of left atrial appendage with 35mm, POD # 1
-ECG with NSR
-Slow to awaken from combination of� Anesthesia/Precedex/Dilaudid/Versed, extubated early this AM(07/16/23) around 7AM
-Pt with labile BP postop, until receiving 1u PRBC. H/H stable @ 10.7/31.8, plts 155K
-Currently off all drips but insulin per protocol
-Encourage use of IS
-Wean off of O2 as tolerated
-OOB into chair
-NG tube placement given hiatal hernia and concern for ileus. Possible coffee ground emesis, monitoring.
Progress Note - Die Operator
Subjective
Date of Service: July 16, 2023
No major complaints. sleeping comfortably
Objective
Labs:
07/16/23 03:28
07/16/23 03:28
Labs
Hgb 10.7 g/dL (12.0-16.0) L 07/16/23 03:28
Hct 31.8 % (37.0-47.0) L 07/16/23 03:28
Plt Count 155 10^3/uL (130-400) 07/16/23 03:28
PT 15.6 Sec (11.4-14.6) H 07/16/23 03:28
INR 1.26 07/16/23 03:28
APTT 25.3 Sec (23.4-35.0) 07/16/23 03:28
Sodium 141 mmol/L (135-145) 07/16/23 03:28
Potassium 4.6 mmol/L (3.5-5.1) D 07/16/23 03:28
BUN 20 mg/dl (7-17) H 07/16/23 03:28
Creatinine 0.9 mg/dL (0.6-1.0) 07/16/23 03:28
Glucose 93 mg/dl (70-99) 07/16/23 03:28
Vital Signs and I&O:
Vital Signs
Temp Pulse Resp BP Pulse Ox
98.9 F 67 16 135/53 100
07/16/23 11:00 07/16/23 14:00 07/16/23 14:00 07/16/23 13:00 07/16/23 14:00
Vital Signs
Temp Pulse Resp BP Pulse Ox
98.9 F 67 16 135/53 100
07/16/23 11:00 07/16/23 14:00 07/16/23 14:00 07/16/23 13:00 07/16/23 14:00
Intake & Output
07/14/23 07/15/23 07/16/23 07/17/23
06:59 06:59 06:59 06:59
Intake Total 950 / 950 350 / 350 1349.5 / 1371.8 108.4 / 108.4
Output Total 200 / 200 1015 / 1040 215 / 215
Balance 750 / 750 350 / 350 334.5 / 331.8 -106.6 / -106.6
Physical Exam
Physical Exam
Elderly female, frail, NAD
awakens to voice, RR, Normal S1 and S2.
Sternotomy scar is dressed.
abd distended, soft, +hypoactive BS
NGT in place
warm ext.
[2023-07-16] MEDS: NSS IV (15:29)
[2023-07-16] MEDS: DULCOLAX 10 MG RECTAL (16:09)
[2023-07-16 16:10] LABS: Glucose - Point of Care 91 mg/dl (70-99)
--- NOTE | 2023-07-16 16:19 | PTCARENOTE ---
NG Tube removed per order.
[2023-07-16 17:07] LABS: Glucose - Point of Care 90 mg/dl (70-99)
[2023-07-16] MEDS: ATIVAN 0.25 MG PO ×2 (17:18→22:03)
--- NOTE | 2023-07-16 17:25 | PTCARENOTE ---
NSR on monitor and VSS; assessment unchanged; family at bedside.
--- NOTE | 2023-07-16 18:13 | W.PN.UPDATE ---
Update Note
Progress Note Update
NGT placed this morning via R nares and initiated NPO status due to large hiatal hernia and gastric dilatation. Follow up x-ray this afternoon confirmed less air. Case d/w Dr. Younger and NGT DC'd. Initiate ice chips and clears only. Bowel regime for
stool pattern on x-ray. Depakote DC'd by psychiatry.
--- NOTE | 2023-07-16 19:48 | PTCARENOTE ---
NSR. VSS. RA. Aox4. Plan of care reviewed with patient. MS CTs remain. Assessment per nursing flowsheet.
[2023-07-16] MEDS: LOPRESSOR 12.5 MG PO (20:59)
[2023-07-16] MEDS: SENOKOT-S 1 TABLET PO (20:59)
[2023-07-16] MEDS: MAGNESIUM OXIDE 500 MG PO (21:00)
[2023-07-16] MEDS: CRESTOR 20 MG PO (21:00)
[2023-07-16] MEDS: TYLENOL 1000 MG PO (22:03)
[2023-07-16] MEDS: NEURONTIN 100 MG PO (22:03)
[2023-07-16] MEDS: PACERONE 200 MG PO (22:03)
[2023-07-16] MEDS: OCEAN, SALINE MIST 2 SPRAYS NASAL (22:04)
[2023-07-16 22:19] LABS: Glucose - Point of Care 114 mg/dl (70-99)
[2023-07-17] VITALS (18 sets, daily range): BP systolic 76–128; BP diastolic 35–74; PULSE 60; O2SAT 100; BMI 27.9
--- NOTE | 2023-07-17 | PTCARENOTE ---
NSR. VSS. Assessment unchanged. Pt incontinent bladder. BM on bedpan. Pt resting
[2023-07-17] MEDS: TORADOL 15 MG IV (01:28)
--- NOTE | 2023-07-17 04:00 | PTCARENOTE ---
NSR. SBP 100. Pt confused, easily reoriented. Toradol administered x1. Cts remains in place. V wire insulated.
[2023-07-17 04:33] LABS: Hematocrit 26.2 % (37.0-47.0); Hemoglobin 8.8 g/dL (12.0-16.0); Mean Corp Hgb Conc. 33.6 g/dL (33.0-37.0); Mean Corpuscular Hgb 30.7 pg (27.0-31.0); Mean Corpuscular Volume 91.3 fL (81.0-99.0); Mean Platelet Volume 11.4 fL (7.4-10.4); Platelet Count 138 10^3/uL (130-400); Red Blood Cell Count 2.87 10^6/uL (4.20-5.40); White Blood Cell Count 15.3 10^3/uL (4.8-10.8)
[2023-07-17 04:58] LABS: Blood Urea Nitrogen 45 mg/dl (7-17); Calcium 8.2 mg/dl (8.4-10.2); Carbon Dioxide 25 mmol/L (22-30); Chloride 108 mmol/L (98-107); Estimated Creatinine Clearance 36 ml/min; Glucose 119 mg/dl (70-99); Potassium 4.7 mmol/L (3.5-5.1); Sodium 137 mmol/L (135-145); eGFR 48.33
[2023-07-17] MEDS: TYLENOL 1000 MG PO ×3 (05:15→22:29)
--- NOTE | 2023-07-17 06:24 | W.PN.CT ---
Today's Communication / Plan
-
-pod #2
-no issues overnight, appropriate, A&O x3, no further somnolence.
-monitor BP - slightly low this am (high 90s-low 100s), asymptomatic
-s/p temporary NGT on 07/15 for large hiatal hernia with gastric dilatation (currently dcd)
-Depakote dcd by Psych - appreciate input
-CT output: 2 meds 85/210 in 12/24 hrs
-weaned off O2- pOx 94-97% on RA
-current meds (ASA, Crestor, Lopressor, Amio, Paxil, Ativan tid)
-Miralax daily for constipation
-encourage IS, OOB
-appreciate everyone's input
Assessment / Plan
-
Assessment:
-S/P Standard sternotomy with aortic and bicaval cannulation/Resection of left atrial mass/Reinforcement of interatrial septum with 4-0 prolene in a running double layer fashion/Ligation of left atrial appendage with 35mm/Placement temporary
ventricular pacing wire, by Dr. Younger, 07/15/23, pod#2
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
-Mild MR
-LVEF 55-60%
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 left hemiparesis, 07/04/23 (has resolved)
-Hypertension
-Hyperlipidemia
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
-Thrombocytopenia
-Anxiety
-GERD/Hiatal hernia (large per CTA of chest @ ))
-Chronic urinary incontinence
-Renal calculi
-CKD stage 3A
-OA
-Dry eyes syndrome
-Ambulatory dysfunction
-Anxiety/depression/paranoia (on Paxil, Ativan and Depakote)
-S/p Appendectomy
-S/p Bilateral cataracts
-S/P Cystocele
-S/p Rectocele
-S/p Hysterectomy
-S/P Oophorectomy
-S/p Tonsillectomy/adenoidectomy
-Head CT on 07/16/23: No acute intracranial abnormality noted. Old right lentiform nucleus infarct, stable. Old small left occipital lobe infarct, stable.
-Acute postop blood loss on chronic anemia (transfused 1u PRBC)
-Acute postop labile BP
-Acute postop somnolence concerning for CVA (pt not following commands postop, head CT showed left occipital infarct/no bleed per Radiologist- likely same as previous)
Discussed patient care with: Nursing and Care Team
Subjective
Procedure
-S/P Standard sternotomy with aortic and bicaval cannulation/Resection of left atrial mass/Reinforcement of interatrial septum with 4-0 prolene in a running double layer fashion/Ligation of left atrial appendage with 35mm/Placement temporary
ventricular pacing wire, by Dr. Younger, 07/15/23
-
Date of Service: July 17, 2023
Objective Data
-
PT 15.6 Sec (11.4-14.6) H 07/16/23 03:28
INR 1.26 07/16/23 03:28
APTT 25.3 Sec (23.4-35.0) 07/16/23 03:28
Vital Signs
Vital Signs
Temp Pulse Resp BP Pulse Ox
98.2 F 68 16 125/46 97
07/16/23 23:49 07/16/23 23:28 07/16/23 23:49 07/16/23 23:28 07/16/23 23:49
CT Intake/Output/Weight
07/16/23 07/16/23 07/17/23
06:59 18:59 06:59
Intake Total 800.9 / 1371.8 152.8 / 202.8 50 / 202.8
Output Total 800 / 1040 300 / 350 50 / 350
Balance 0.9 / 331.8 -147.2 / -147.2 0 / -147.2
SaO2: 97
Physical Exam
-
General: Awake and AOx3
Cardiovascular: Regular rate & rhythm, No Murmurs and No Rub
Respiratory: Decreased Breath Sounds
Sternum: Stable
Incision: Clean, Dry and Intact
Extremities: No Edema (2+ DP b/l)
Abdomen: soft, nontender, nondistended, + bowel sounds, + flatus
Data Reviewed
-
Lab Results: Results Reviewed
Medications: Active Meds Reviewed
Chest X-Ray: Report Reviewed and Image Reviewed
ECG: Report Reviewed and Image Reviewed
--- NOTE | 2023-07-17 07:32 | W.PN.CARDCBS ---
Today's Communication / Plan
-
Plan:
-Pt is s/p resection of left atrial mass, reinforcement of interatrial septum, ligation of left atrial appendage with 35mm, POD # 2
-ECG with NSR, no ischemic changes
-Slow to awaken first evening post op from combination of�anesthesia/Precedex/Dilaudid/Versed, extubated AM of 07/16/23 around 7AM--Depakote dc'd
-s/p 1u PRBC 07/16/23, cont to monitor H+H
-Monitor renal function.
-Encourage use of IS
-Wean off of O2 as tolerated
-OOB into chair
-NG tube placement temporarily given hiatal hernia and concern for ileus, now dc'd and monitoring with plan to slowly advance diet.
-remainder chest tubes hopefully will come out today.
Impression / Plan
-
Almond Blancher Operator: Dr Meryl HIGGINS [facility]
Impression:
LA mass
Recent CVA
CAD
HTN
HLD
CKD
platelet disorder NOS
Plan:
-Pt is s/p resection of left atrial mass, reinforcement of interatrial septum, ligation of left atrial appendage with 35mm, POD # 2
-ECG with NSR, no ischemic changes
-Slow to awaken first evening post op from combination of�anesthesia/Precedex/Dilaudid/Versed, extubated AM of 07/16/23 around 7AM--Depakote dc'd
-s/p 1u PRBC 07/16/23, cont to monitor H+H
-Monitor renal function.
-Encourage use of IS
-Wean off of O2 as tolerated
-OOB into chair
-NG tube placement temporarily given hiatal hernia and concern for ileus, now dc'd and monitoring with plan to slowly advance diet.
-remainder chest tubes hopefully will come out today.
Progress Note - Almond Blancher Operator
Subjective
Date of Service: July 17, 2023
Overall doing well without major complaints, intermittent memory deficits/confusion
Objective
Labs:
07/17/23 04:10
07/17/23 04:10
Labs
Hgb 8.8 g/dL (12.0-16.0) L 07/17/23 04:10
Hct 26.2 % (37.0-47.0) L 07/17/23 04:10
Plt Count 138 10^3/uL (130-400) 07/17/23 04:10
PT 15.6 Sec (11.4-14.6) H 07/16/23 03:28
INR 1.26 07/16/23 03:28
APTT 25.3 Sec (23.4-35.0) 07/16/23 03:28
Sodium 137 mmol/L (135-145) 07/17/23 04:10
Potassium 4.7 mmol/L (3.5-5.1) 07/17/23 04:10
BUN 45 mg/dl (7-17) H 07/17/23 04:10
Creatinine 1.1 mg/dL (0.6-1.0) H 07/17/23 04:10
Glucose 119 mg/dl (70-99) H 07/17/23 04:10
Vital Signs and I&O:
Vital Signs
Temp Pulse Resp BP Pulse Ox
97.8 F 64 16 106/56 94
07/17/23 04:26 07/17/23 05:41 07/16/23 23:49 07/17/23 05:41 07/17/23 04:26
Vital Signs
Temp Pulse Resp BP Pulse Ox
97.8 F 64 16 106/56 94
07/17/23 04:26 07/17/23 05:41 07/16/23 23:49 07/17/23 05:41 07/17/23 04:26
Intake & Output
0307/16/23 07/17/23 07/18/23
06:59 06:59 06:59 06:59
Intake Total 350 / 350 1349.5 / 1371.8 262.8 / 262.8
Output Total 1015 / 1040 385 / 385
Balance 350 / 350 334.5 / 331.8 -122.2 / -122.2
Physical Exam
Physical Exam
Elderly female, frail, NAD, OOB in chair
awakens to voice, RR, Normal S1 and S2.
Sternotomy scar is dressed.
abd distended, soft, +hypoactive BS
NGT in place
warm ext.
--- NOTE | 2023-07-17 07:36 | W.PN.INTV ---
Today's Communication / Plan
Recommendations
Wean oxygen
Increase activity
Patient has been delined
Insulin drip will be discontinued-steel wheel engraver will sign off-call pulmonary if respiratory issues arise
Assessment
-
88-year-old female with a history of hypertension, hyperlipidemia, chronic kidney disease, platelet disorder, CAD noted to have left atrial mass concerning for left atrial myxoma and underwent myxoma resection and steel wheel engraver consulted for
postoperative ventilator/critical care management 07/15/2023.
Assessment
Left atrial myxoma
Status post myxoma resection versus clot removal and left atrial appendage clip placement-Dr. Younger 07/15/2023
Recent CVA 07/04/2023
Platelet disorder-von Willebrand type
Conditions present prior to admission:
Hypertension.
Hyperlipidemia.
Chronic kidney disease.
Platelet disorder.
Recent CVA-06/2023.
GERD.
DI.
COPD.
Anxiety.
Depression.
Psychosis.
Insomnia.
Ambulatory dysfunction.
Cataract. Hysterectomy. Cystocele/rectocele repair. Appendectomy. Tonsillectomy. Myringotomy tubes.
Plan
Respiratory status currently stable
Wean FiO2-attempt to wean to room air
Incentive spirometry encouraged
Increase activity
Aspiration precautions
Mental status cleared and appears to be baseline
CT head negative for bleed with old left occipital infarct
Patient has been delined
Continue to monitor chest tube output
Follow hemoglobin
Continue to follow platelet count and coags
Transfuse blood product as needed
CT surgery following chest tubes as well
Monitor blood sugar
Insulin supplementation continues as needed
Early nutrition
Early mobilization
DVT prophylaxis
Insulin drip will be discontinued-steel wheel engraver will sign off-call pulmonary if respiratory issues arise
Reviewed the patient's pertinent medical records including radiographs, microbiology, laboratory evaluations, and discussion with primary team, and critical care nursing.
Diagnostic data:
CT head 07/12/2023-no acute intracranial abnormalities, chronic senescent changes
CT chest abdomen and pelvis 07/12/2023-large left atrial cardiac mass, possible myxoma, no acute abnormalities in the chest abdomen or pelvis, large hiatal hernia with intrathoracic stomach
Cardiac catheterization 07/12/2023-nonobstructing CAD
Subjective Dataa
Subjective Data
Date of Service:
Date of Service: July 17, 2023
Chief Complaint: Fondant Puff Maker Follow Up and Pulmonary Follow Up
Subjective:
Out of bed, no complaints of shortness of breath, chest pain or abdominal pain, 'sleepy'
Review of Systems
General: Other (Per HPI)
Objective Data
Data Reviewed
Vital Signs / I&O / Oxygen:
Vital Signs
Temp Pulse Resp BP Pulse Ox
97.8 F 64 16 106/56 94
07/17/23 04:26 07/17/23 05:41 07/16/23 23:49 07/17/23 05:41 07/17/23 04:26
Intake and Output
07/16/23 07/17/23 07/18/23
06:59 06:59 06:59
Intake Total 1349.5 / 1371.8 262.8 / 262.8
Output Total 1015 / 1040 385 / 385
Balance 334.5 / 331.8 -122.2 / -122.2
SaO2 [CPAP/PSV] 100
SaO2 [SIMV] 100
SaO2 94
Nasal Cannula flow liters per 4
minute
Physical Exam
General: Respiratory Distress (n) and Comfortable
HEENT: Normocephalic, Anicteric and Moist Mucous Membranes
Cardiovascular: Regular Rhythm
Respiratory: Crackles (Rare basilar), Rhonchi (n), Non-Labored Respirations, Accessory Resp Muscle Use (n) and Stridor
GI: Soft, Non Distended and Non Tender
Neurology: Awake, Alert and No Motor Deficits
Skin: Warm, Good Color, Cyanosis (n), Jaundice (n) and Rash
Labs/Micro/Reports
Lab Data
07/17/23 04:10
07/17/23 04:10
--- NOTE | 2023-07-17 08:12 | PTCARENOTE ---
Received pt from oracle scm consultant RN; pt AAOx3 and resting comfortably in chair; NSR on monitor and VSS; Epicardial V wire insulated; RIJ Cordis and PIV x1 patent; Lung diminished throughout; IS to 1000; CT x2 to -20 wall suction, no air leak and no
crepitus noted; hypoactive bowel sounds; Pt voiding clear yellow urine; palpable pulses throughout; no edema noted; surgical sites C/D/I; see nursing flow sheet for further details.
[2023-07-17] MEDS: PACERONE 200 MG PO ×3 (08:25→22:29)
[2023-07-17] MEDS: RESTASIS 0.05% OPHTHALMIC EMULSION 1 DROPS RIGHT EYE ×2 (08:25→19:33)
[2023-07-17] MEDS: PROTONIX 40 MG PO (08:25)
[2023-07-17] MEDS: PAXIL 40 MG PO (08:25)
[2023-07-17] MEDS: LOW STRENGTH ASPIRIN 81 MG PO (08:25)
[2023-07-17] MEDS: LOPRESSOR 12.5 MG PO ×2 (08:26→19:34)
[2023-07-17] MEDS: PAXIL 10 MG PO (08:26)
[2023-07-17] MEDS: BACTROBAN 2% OINTMENT 1 APPLIC NASAL ×2 (08:26→19:41)
[2023-07-17] MEDS: ATIVAN 0.25 MG PO ×3 (08:26→22:28)
[2023-07-17] MEDS: MIRALAX 17 GRAMS PO ×2 (08:26→22:29)
[2023-07-17] MEDS: SENOKOT-S 1 TABLET PO ×2 (08:27→19:33)
[2023-07-17] MEDS: MAGNESIUM OXIDE PO (08:27)
[2023-07-17] MEDS: NOVOLOG FLEXPEN-MODERATE RESISTANCE SC (08:36)
[2023-07-17 08:37] LABS: Glucose - Point of Care 144 mg/dl (70-99)
[2023-07-17] MEDS: NEURONTIN 100 MG PO ×2 (08:46→19:33)
--- NOTE | 2023-07-17 10:15 | PTCARENOTE ---
Pt in chair, set up for breakfast; pt engaging in eating breakfast, however pt missing oatmeal container multiple times; upon instructing pt how to use spoon properly, pt was able follow directions, pt was unaware of the issue; PT/OT in with pt and
multiple times pt had a disconnect when it came to hand eye coordination; RN PT/OT in room with pt and notice disconnect. Reji LUNANP notified of change in pt; CVNP updated Dr Younger and Neuro and no intervention at this time.
--- NOTE | 2023-07-17 11:12 | PTCARENOTE ---
Mediastinal chest tubes x2 removed with CVPA at bedside.
--- NOTE | 2023-07-17 11:45 | PTCARENOTE ---
NSR on monitor and VSS; assessment unchanged and family at bedside.
--- NOTE | 2023-07-17 12:16 | CM ---
Addendum entered by Danae Sims 07/17/23 12:26:
Sent referral to the [facility] Admissions to check on bed availability.
Original Note:
Reviewed chart. Met with Mrs. Terry to review discharge plans. We reviewed SNF/Rehab. at the [facility]. Will send referral to [facility] to check on bed availability. She will need pre-cert with her insurance. Prior to admission she resides
alone in an apartment at [facility]. Prior to admission she was independent with ambulation and adls. Medial work-up in progress. The discharge plan is to go to [facility] SNF if bed available and approved by insurance when
medically stable.
[2023-07-17] MEDS: NOVOLOG FLEXPEN-MODERATE RESISTANCE 1 UNITS SC (14:10)
[2023-07-17 14:12] LABS: Glucose - Point of Care 166 mg/dl (70-99)
[2023-07-17] MEDS: NSS 500 IV (14:33)
--- NOTE | 2023-07-17 15:06 | W.PN.UPDATE ---
Update Note
Progress Note Update
patient seen chart reviewed daughter in law at bedside. spoke w nursing. the patient continues w gut motility issues. she is very troubled by constipation which has been resistant to multiple treatments. paxil may be the culprit in the gut
motility issues...patient also notes extreme dry mouth and dry eyes. says she wakes up in the night bc dry mouth and eyes. discussed w her cutting back the paxil to 40 mg. can't cut back too quickly given w/d syndrome but it may be time for her to
move on to a more modern remedy for her anxiety/depression than paxil. she has also had weight gain which at this point she does not need. explained to patient how anticholinergic side effects have an impact on her gi tract. nursing will talk w
hospitalist re considering enema as patient at this point has leakage of stool around what may be an impaction. linda white'ed. continue other meds as they are will follow
[2023-07-17] MEDS: FLEET MINERAL OIL ENEMA 133 ML RECTAL (15:18)
[2023-07-17] MEDS: ZOFRAN 4 MG IV (16:17)
--- NOTE | 2023-07-17 16:48 | PTCARENOTE ---
NSR on monitor and VSS; enema given per order, small hard bowel movement resulted; family at bedside and updated; assessment unchanged.
[2023-07-17] MEDS: NOVOLOG FLEXPEN-MODERATE RESISTANCE 3 UNITS SC (18:17)
[2023-07-17 18:19] LABS: Glucose - Point of Care 200 mg/dl (70-99)
[2023-07-17] MEDS: CRESTOR 20 MG PO (19:33)
[2023-07-17] MEDS: MAGNESIUM OXIDE 500 MG PO (19:33)
--- NOTE | 2023-07-17 21:08 | PTCARENOTE ---
Assumed care of patient at 1900. Patient found in bed sleeping at time of assessment. Patient is AOx4, follows commands appropriately, moves all extremities. Patient reports anxiety 2/2 constipation and is confused/forgetful at times on assessment.
Easily reoriented. Lung sounds are diminished at the bases, patient is on RA saO2 at 96%. Heart sounds have a regular rate and rhythm, patient is SR on the monitor, patient has normal palpable pulses and trace generalized anasarca. Active BS
throughout all four quadrants with round soft abdomen. Patient reports severe constipation received multiple enemas during the day remains on bowel regiment will continue to monitor. Patient is voiding clear jg urine. There is a sternal incision
approx with surg adhesive, an ABD dressing over CT wounds that is CDI, and generalized bruising throughout. Patient has R IJ corids receiving KVO and R AC PIV. VSS.
[2023-07-17] MEDS: MINERAL OIL 30 ML PO (22:28)
[2023-07-17] MEDS: OCEAN, SALINE MIST 1 SPRAYS NASAL (22:29)
[2023-07-17 22:40] LABS: Glucose - Point of Care 209 mg/dl (70-99)
[2023-07-18] VITALS (13 sets, daily range): BP systolic 83–121; BP diastolic 36–66; PULSE 57; O2SAT 97; BMI 26.2
--- NOTE | 2023-07-18 00:30 | PTCARENOTE ---
Patient reassessed. VSS. Bowel regiment medications administered. Assisted patient to bathroom for small void and BM. No c/o pain. Patient remains SR on the monitor. Patient is stable.
[2023-07-18 04:08] LABS: Hematocrit 27.7 % (37.0-47.0); Hemoglobin 8.8 g/dL (12.0-16.0); Mean Corp Hgb Conc. 31.8 g/dL (33.0-37.0); Mean Corpuscular Hgb 30.2 pg (27.0-31.0); Mean Corpuscular Volume 95.2 fL (81.0-99.0); Mean Platelet Volume 11.6 fL (7.4-10.4); Platelet Count 164 10^3/uL (130-400); Red Blood Cell Count 2.91 10^6/uL (4.20-5.40); Red Cell Dist. Width 14.6 % (11.5-14.5); White Blood Cell Count 14.3 10^3/uL (4.8-10.8)
[2023-07-18 04:34] LABS: Blood Urea Nitrogen 65 mg/dl (7-17); Calcium 8.6 mg/dl (8.4-10.2); Carbon Dioxide 30 mmol/L (22-30); Chloride 99 mmol/L (98-107); Estimated Creatinine Clearance 36 ml/min; Glucose 146 mg/dl (70-99); Magnesium 2.9 mg/dl (1.6-2.3); Sodium 134 mmol/L (135-145); eGFR 48.33
--- NOTE | 2023-07-18 05:00 | PTCARENOTE ---
Patient reassessed. AM labs obtained. VSS. AM hygiene care provided. Patient with large urinary incontinence episode. Assisted to bathroom no BM. Patient has no complaints of pain. Patient remains in NSR on the monitor. Patient is stable.
--- NOTE | 2023-07-18 06:45 | W.PN.CT ---
Today's Communication / Plan
-
-pod #3
-no issues overnight
-aggressive bowel tx yesterday, had small BM overnight
-current meds (ASA, Crestor, Lopressor, Amio,� Paxil, Ativan tid)
-encourage IS, OOB
-appreciate everyone's input
Assessment / Plan
-
Assessment:
-S/P Standard sternotomy with aortic and bicaval cannulation/Resection of left atrial mass/Reinforcement of interatrial septum with 4-0 prolene in a running double layer fashion/Ligation of left atrial appendage with 35mm/Placement temporary
ventricular pacing wire, by Dr. Younger, 07/15/23, pod#3
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
-Mild MR
-LVEF 55-60%
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 left hemiparesis, 07/04/23 (has resolved)
-Hypertension
-Hyperlipidemia
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
-Thrombocytopenia
-Anxiety
-GERD/Hiatal hernia (large per CTA of chest @ ))
-Chronic urinary incontinence
-Renal calculi
-CKD stage 3A
-OA
-Dry eyes syndrome
-Ambulatory dysfunction
-Anxiety/depression/paranoia (on Paxil, Ativan and Depakote)
-S/p Appendectomy
-S/p Bilateral cataracts
-S/P Cystocele
-S/p Rectocele
-S/p Hysterectomy
-S/P Oophorectomy
-S/p Tonsillectomy/adenoidectomy
-Head CT on 07/16/23: No acute intracranial abnormality noted. Old right lentiform nucleus infarct, stable. Old small left occipital lobe infarct, stable.
-Acute postop blood loss on chronic anemia (transfused 1u PRBC)
-Acute postop labile BP
-Acute postop somnolence concerning for CVA (pt not following commands postop, head CT showed left occipital infarct/no bleed per Radiologist- likely same as previous)
Discussed patient care with: Nursing and Care Team
Subjective
Procedure
-S/P Standard sternotomy with aortic and bicaval cannulation/Resection of left atrial mass/Reinforcement of interatrial septum with 4-0 prolene in a running double layer fashion/Ligation of left atrial appendage with 35mm/Placement temporary
ventricular pacing wire, by Dr. Younger, 07/15/23
-
Date of Service: July 18, 2023
Objective Data
-
Lab Results
07/18/23 03:34
07/18/23 03:34
PT 15.6 Sec (11.4-14.6) H 07/16/23 03:28
INR 1.26 07/16/23 03:28
APTT 25.3 Sec (23.4-35.0) 07/16/23 03:28
Vital Signs
Vital Signs
Temp Pulse Resp BP Pulse Ox
98.2 F 61 22 111/49 94
07/18/23 03:00 07/18/23 03:31 07/18/23 03:00 07/18/23 03:31 07/18/23 03:00
CT Intake/Output/Weight
07/17/23 07/17/23 07/18/23
06:59 18:59 06:59
Intake Total 110 / 262.8 120 / 920 800 / 920
Output Total 85 / 385 245 / 245
Balance 25 / -122.2 -125 / 675 800 / 675
SaO2: 94
Physical Exam
-
General: Awake and AOx3
Cardiovascular: Regular rate & rhythm, No Murmurs and No Rub
Respiratory: Decreased Breath Sounds
Sternum: Stable
Incision: Clean, Dry and Intact
Abdomen: soft, nontender, nondistended, + bowel sounds, + flatus
Extremities: No Edema (2+ DP b/l)
Data Reviewed
-
Lab Results: Results Reviewed
Chest X-Ray: Report Reviewed and Image Reviewed
ECG: Report Reviewed and Image Reviewed
[2023-07-18] MEDS: TYLENOL 1000 MG PO ×2 (07:15→14:29)
[2023-07-18] MEDS: NOVOLOG FLEXPEN-MODERATE RESISTANCE SC ×2 (07:29→18:22)
--- NOTE | 2023-07-18 08:00 | PTCARENOTE ---
resumed care of patient. Drowsy. Forgetful on date. But oriented when asked other questions. falling asleep easily. VSS. SB on monitor. 96% RA. Easily arousable. Ativan held. Lung sounds are diminished at the bases. normal palpable pulses and trace
generalized anasarca. + BS. remains constipated. additional bowel regimen added and will be given. Patient is voiding clear jg urine. all surigcal sites c/d/i. assist x1-2 with walker to get to bsc. family at bedside. will continue to monitor.
[2023-07-18] MEDS: CITROMA 300 ML PO (08:20)
[2023-07-18] MEDS: MILK OF MAGNESIA 30 ML PO ×2 (08:20→09:13)
[2023-07-18] MEDS: SENOKOT-S 1 TABLET PO ×2 (08:20→20:19)
[2023-07-18] MEDS: MIRALAX 17 GRAMS PO ×2 (08:20→20:20)
[2023-07-18] MEDS: BACTROBAN 2% OINTMENT 1 APPLIC NASAL ×2 (08:21→20:20)
[2023-07-18] MEDS: LOW STRENGTH ASPIRIN 81 MG PO (08:23)
[2023-07-18] MEDS: PROTONIX 40 MG PO (08:24)
[2023-07-18] MEDS: PAXIL 40 MG PO (08:24)
[2023-07-18] MEDS: MAGNESIUM OXIDE PO (08:26)
[2023-07-18] MEDS: NEURONTIN 100 MG PO (08:26)
[2023-07-18] MEDS: LOPRESSOR 12.5 MG PO (08:27)
[2023-07-18] MEDS: PACERONE 200 MG PO ×2 (08:27→20:19)
[2023-07-18] MEDS: RESTASIS 0.05% OPHTHALMIC EMULSION 10 DROPS RIGHT EYE (08:30)
--- NOTE | 2023-07-18 09:02 | W.PN.CARDCBS ---
Today's Communication / Plan
-
Post-op care per CTS
Advance diet as tolerated, encourage oral hydration
OOB as tolerated
Impression / Plan
-
Manufacturing Advisor: Dr Meryl [facility]
Impression:
LA mass
Recent CVA
CAD
HTN
HLD
CKD
platelet disorder NOS
Plan:
-Pt is s/p resection of left atrial mass, reinforcement of interatrial septum, ligation of left atrial appendage with 35mm, POD # 2
-ECG with NSR, no ischemic changes
-Slow to awaken first evening post op from combination of�anesthesia/Precedex/Dilaudid/Versed, extubated AM of 07/16/23 around 7AM--Depakote dc'd
-s/p 1u PRBC 07/16/23, cont to monitor H+H, stable 07/17
-Monitor renal function.
-Encourage use of IS
-Wean off of O2 as tolerated
-OOB into chair
-NG tube placement temporarily given hiatal hernia and concern for ileus, now dc'd and monitoring with plan to slowly advance diet.
-Encourage oral hydration; increased BUN/Cr
Progress Note - Manufacturing Advisor
Subjective
Date of Service: July 18, 2023
Patient seen and examined this morning. No acute events overnight. Patient resting comfortably in chair. Notes fatigue. Denies cp, sob, abdominal pain, palpitations, or focal weakness.
Objective
Labs:
07/18/23 03:34
07/18/23 03:34
Labs
Hgb 8.8 g/dL (12.0-16.0) L 07/18/23 03:34
Hct 27.7 % (37.0-47.0) L 07/18/23 03:34
Plt Count 164 10^3/uL (130-400) 07/18/23 03:34
PT 15.6 Sec (11.4-14.6) H 07/16/23 03:28
INR 1.26 07/16/23 03:28
APTT 25.3 Sec (23.4-35.0) 07/16/23 03:28
Sodium 134 mmol/L (135-145) L 07/18/23 03:34
Potassium 5.0 mmol/L (3.5-5.1) 07/18/23 03:34
BUN 65 mg/dl (7-17) H 07/18/23 03:34
Creatinine 1.1 mg/dL (0.6-1.0) H 07/18/23 03:34
Glucose 146 mg/dl (70-99) H 07/18/23 03:34
Vital Signs and I&O:
Vital Signs
Temp Pulse Resp BP Pulse Ox
98.0 F 65 22 118/48 95
07/18/23 08:00 07/18/23 08:27 07/18/23 03:00 07/18/23 08:27 07/18/23 08:00
Vital Signs
Temp Pulse Resp BP Pulse Ox
98.0 F 65 22 118/48 95
07/18/23 08:00 07/18/23 08:27 07/18/23 03:00 07/18/23 08:27 07/18/23 08:00
Intake & Output
07/16/23 07/17/23 07/18/23 07/19/23
06:59 06:59 06:59 06:59
Intake Total 1349.5 / 1371.8 262.8 / 262.8 920 / 920
Output Total 1015 / 1040 385 / 385 245 / 245
Balance 334.5 / 331.8 -122.2 / -122.2 675 / 675
Physical Exam
Physical Exam
Elderly female, frail, NAD, OOB in chair
awakens to voice, RR, Normal S1 and S2.
Sternotomy scar is dressed.
abd distended, soft, +hypoactive BS
NGT in place
warm ext.
Tele SR, no events
[2023-07-18] MEDS: ATIVAN PO ×2 (09:31→20:20)
--- NOTE | 2023-07-18 12:08 | W.PN.UPDATE ---
Update Note
Progress Note Update
patient seen chart reviewed. discussed with nursing. patient did have a bowel movement! which is a +. nursing noted she was very sleepy this am and held ativan. i found her to be more confused than she had been . she asked me why the clock was
upside down. also told me her girls had not been here. she did not recall that daughter in law was here yesterday and the day before when i met w them both. have decreased ativan to bid. she does not appear very anxious at this point and it is
possible that the myxoma contributed to her perception of anxiety. at any rate if she can tolerate it there are advantages to her NOT taking ativan although family is convinced she needs it ( i am not so convinced). i don't think this confusion is
secondary to cutting paxil by ten mg. such confusion not a typical presentation of paxil withdrawal. psych will see her tomorrow
--- NOTE | 2023-07-18 14:07 | CM ---
Addendum entered by Danae Sims 07/18/23 15:47:
Met with Mrs. Terry daughter,son-in-law and [id number] to updated them regarding discharge plans. Plan is to go to [facility] when medically stable. Daughter will bring check in tomorrow for the wheelchair van payment. Sent COVID test
results to [facility].
Original Note:
Reviewed chart. Telephone call to Nilda Chance to review if bed available at [facility]. [facility] states they can accept Mrs. Terry to the SNF/Rehab. The auth number is [id number]. The telephone number for report is (
[phone]) and fax number is ([phone]) Tentative made wheelchair arrangements with [facility] for 2:00 p.m. Cost is $130.00. Gave the phone number of [facility] and cost to call to pay for wheelchair van. Medical
work-up in progress. The discharge plan is to go to [facility] when medically stable.
[2023-07-18] MEDS: NSS IV (14:29)
[2023-07-18 14:50] LABS: Glucose - Point of Care 203 mg/dl (70-99)
[2023-07-18 15:18] LABS: COVID-19 Antigen Negative (Negative)
[2023-07-18] MEDS: NOVOLOG FLEXPEN-MODERATE RESISTANCE 3 UNITS SC (15:18)
--- NOTE | 2023-07-18 15:26 | PTCARENOTE ---
patient heme +. large loose semi liquid BMx1 loose BM small x1 on bsc. patient very drowsy. slow to respond verbally. intermittently confused.
--- NOTE | 2023-07-18 16:45 | PTCARENOTE ---
Pt assessed. Assisted with minimal 1 assist to commode. + dark brown/black soft stool. Assisted back to the chair. Pt drowsy but oriented x4. Flat affect. THOMPSON with equal strength. SB with rates in the 50s. BP stable 110/47. POX 97% on RA. Surgical
sites stable. V-wire insulated. Right IJ cordis intact, Right AC PIV intact.
[2023-07-18] MEDS: ZOFRAN 4 MG IV (17:46)
[2023-07-18 18:18] LABS: Glucose - Point of Care 110 mg/dl (70-99)
[2023-07-18] MEDS: RESTASIS 0.05% OPHTHALMIC EMULSION 1 DROPS RIGHT EYE (20:18)
[2023-07-18] MEDS: MAGNESIUM OXIDE 500 MG PO (20:19)
[2023-07-18] MEDS: CRESTOR 20 MG PO (20:19)
--- NOTE | 2023-07-18 21:00 | PTCARENOTE ---
Pt received from manjit RN. Walking rounds completed. Pt resting in bed at this time. Pt AAOx4. THOMPSON. Following commands appropriately. Intermittently forgetful throughout assessment. SR on monitor. HR 55-60s. Temporary epicardial v-wire intact and
insulated. BP stable. Bilateral radial and DP pulses palpable. Generalized edema. RA. POX 95%. Lung sounds diminished. Abdomen soft/nontender. Sternal incision approximated w/ surgical adhesive, intact, and open to air. Generalized bruising present
on chest. CT dressing changed. Right IJ cordis CDI w/ KVO infusing. Right PIV CDI and flushes. Pt instructed to ring call el if she has to use the bedside commode - in agreement. No c/o pain at this time. Call el within reach. See worklist for
full nursing assessment and interventions. See MAR for medication administration.
[2023-07-18] MEDS: TYLENOL PO (22:00)
[2023-07-18] MEDS: OCEAN, SALINE MIST NASAL (22:07)
[2023-07-18 22:28] LABS: Glucose - Point of Care 173 mg/dl (70-99)
[2023-07-19] VITALS (8 sets, daily range): BP systolic 113–133; BP diastolic 39–97; PULSE 67; BMI 28.5
--- NOTE | 2023-07-19 00:22 | PTCARENOTE ---
Pt reassessed. SR on monitor. HR 60s. BP stable, 114/42. RA. POX 96%. Pt resting in bed at this time. All surgical sites stable. No c/o pain. Call el within reach.
--- NOTE | 2023-07-19 04:45 | PTCARENOTE ---
Previous assessment unchanged. Pt SR on monitor. HR 60s. BP stable. RA. POX 95%. All surgical sites stable. Pt had multiple loose BM's overnight. Labs drawn and sent. Call el within reach. Interventions and VS as documented.
[2023-07-19 04:52] LABS: Hematocrit 26.8 % (37.0-47.0); Hemoglobin 8.6 g/dL (12.0-16.0); Mean Corp Hgb Conc. 32.1 g/dL (33.0-37.0); Mean Corpuscular Hgb 30.8 pg (27.0-31.0); Mean Corpuscular Volume 96.1 fL (81.0-99.0); Mean Platelet Volume 11.1 fL (7.4-10.4); Platelet Count 204 10^3/uL (130-400); Red Blood Cell Count 2.79 10^6/uL (4.20-5.40); Red Cell Dist. Width 14.2 % (11.5-14.5); White Blood Cell Count 12.4 10^3/uL (4.8-10.8)
[2023-07-19 05:16] LABS: Blood Urea Nitrogen 64 mg/dl (7-17); Calcium 7.8 mg/dl (8.4-10.2); Carbon Dioxide 27 mmol/L (22-30); Chloride 101 mmol/L (98-107); Estimated Creatinine Clearance 32 ml/min; Glucose 106 mg/dl (70-99); Magnesium 3.3 mg/dl (1.6-2.3); Potassium 5.1 mmol/L (3.5-5.1); Sodium 131 mmol/L (135-145); eGFR 48.33
--- NOTE | 2023-07-19 05:27 | W.PN.CT ---
Today's Communication / Plan
-
-pod #4
-no issues overnight. Hemodynamically and neurologically intact.
-BB and Amio decreased (switched to low-dose Toprol) for bradycardia
-Ativan decreased for somnolence
-elevated Mg - dcd Mg supplement
-follow 2v-CXR
-plans for d/c to [facility] on 07/18
-encourage IS, OOB, ambulate
Assessment / Plan
-
Assessment:
-S/P Standard sternotomy with aortic and bicaval cannulation/Resection of left atrial mass/Reinforcement of interatrial septum with 4-0 prolene in a running double layer fashion/Ligation of left atrial appendage with 35mm/Placement temporary
ventricular pacing wire, by Dr. Younger, 07/15/23, pod#4
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
-Mild MR
-LVEF 55-60%
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 left hemiparesis, 07/04/23 (has resolved)
-Hypertension
-Hyperlipidemia
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
-Thrombocytopenia
-Anxiety
-GERD/Hiatal hernia (large per CTA of chest @ ))
-Chronic urinary incontinence
-Renal calculi
-CKD stage 3A
-OA
-Dry eyes syndrome
-Ambulatory dysfunction
-Anxiety/depression/paranoia (on Paxil, Ativan and Depakote)
-S/p Appendectomy
-S/p Bilateral cataracts
-S/P Cystocele
-S/p Rectocele
-S/p Hysterectomy
-S/P Oophorectomy
-S/p Tonsillectomy/adenoidectomy
-Head CT on 07/16/23: No acute intracranial abnormality noted. Old right lentiform nucleus infarct, stable. Old small left occipital lobe infarct, stable.
-Acute postop blood loss on chronic anemia (transfused 1u PRBC)
-Acute postop labile BP
-Acute postop somnolence concerning for CVA (pt not following commands postop, head CT showed left occipital infarct/no bleed per Radiologist- likely same as previous)
-Acute postop hyponatremia
Discussed patient care with: Nursing and Care Team
Subjective
Procedure
-S/P Standard sternotomy with aortic and bicaval cannulation/Resection of left atrial mass/Reinforcement of interatrial septum with 4-0 prolene in a running double layer fashion/Ligation of left atrial appendage with 35mm/Placement temporary
ventricular pacing wire, by Dr. Younger, 07/15/23
-
Date of Service: July 19, 2023
Objective Data
-
PT 15.6 Sec (11.4-14.6) H 07/16/23 03:28
INR 1.26 07/16/23 03:28
APTT 25.3 Sec (23.4-35.0) 07/16/23 03:28
Vital Signs
Vital Signs
Temp Pulse Resp BP Pulse Ox
97.5 F 65 16 114/42 96
07/19/23 00:09 07/19/23 00:09 07/19/23 00:09 07/19/23 00:09 07/19/23 00:09
CT Intake/Output/Weight
07/18/23 07/18/23 07/19/23
06:59 18:59 06:59
Intake Total 800 / 920 640 / 690 50 / 690
Balance 800 / 675 640 / 690 50 / 690
SaO2: 96
Physical Exam
-
General: Awake and AOx3
Cardiovascular: Regular rate & rhythm, No Murmurs and No Rub
Respiratory: Decreased Breath Sounds
Sternum: Stable
Incision: Clean, Dry and Intact
Extremities: No Edema
Abdomen: soft, nontender, nondistended, + bowel sounds, +BM
Data Reviewed
-
Lab Results: Results Reviewed
Medications: Active Meds Reviewed
Chest X-Ray: Report Reviewed and Image Reviewed
ECG: Report Reviewed and Image Reviewed
[2023-07-19] MEDS: TYLENOL 1000 MG PO ×2 (06:00→13:06)
[2023-07-19 07:42] LABS: Glucose - Point of Care 141 mg/dl (70-99)
[2023-07-19] MEDS: SENOKOT-S 1 TABLET PO (08:08)
[2023-07-19] MEDS: PROTONIX 40 MG PO (08:08)
[2023-07-19] MEDS: ATIVAN 0.25 MG PO (08:08)
[2023-07-19] MEDS: LOW STRENGTH ASPIRIN 81 MG PO (08:08)
[2023-07-19] MEDS: PACERONE 200 MG PO (08:08)
[2023-07-19] MEDS: TOPROL XL 12.5 MG PO (08:08)
[2023-07-19] MEDS: PAXIL 40 MG PO (08:08)
[2023-07-19] MEDS: LASIX 40 MG PO (08:08)
[2023-07-19] MEDS: MIRALAX 17 GRAMS PO (08:08)
[2023-07-19] MEDS: RESTASIS 0.05% OPHTHALMIC EMULSION 1 DROPS RIGHT EYE (08:08)
[2023-07-19] MEDS: NOVOLOG FLEXPEN-MODERATE RESISTANCE SC (08:09)
[2023-07-19] MEDS: BACTROBAN 2% OINTMENT 1 APPLIC NASAL (08:09)
--- NOTE | 2023-07-19 08:27 | PTCARENOTE ---
Received pt from packaging assembler RN; pt AAOx3 and resting comfortably in chair; NSR on monitor and VSS: lungs diminished; IS to 1000; positive bowel sounds; pt voiding clear yellow urine; palpable pulses throughout; no edema noted; all surgical sites
C/D/I; see nursing documentation for further details.
--- NOTE | 2023-07-19 08:46 | W.DCSUMMARY ---
Discharge Summary
Discharge Data
Date of Admission: 07/12/23
Date of Discharge: 07/19/23
Total time spent discharging patient (in min): 35
-
Pending Results: No
Hospital Course
Primary care physician:
Dr. Caitlin Roberson
Outpatient sweatband drummer:
Dr. Sheth
Inpatient consultants:
DCA, fermentation operator, neurology, psychiatry, hematology/oncology
Procedures:
1. Resection of left atrial mass via sternotomy
Primary Diagnosis:
1. Left atrial mass with recent cerebral vascular emboli
Secondary Diagnoses:
1. Recent cerebrovascular emboli with multiple areas of strokes in her brain, likely embolic
2. 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
3. Von Willebrand's disease
4. Hypertension
5. Hyperlipidemia
6. CKD stage III
7. Large hiatal hernia with most of her stomach in her right chest
8. Anxiety and depression/paranoia
9. Osteoarthritis
10. Nonobstructive CAD
HPI: 88-year-old female with a known blood disorder.� She presented with multiple CVAs and with a facial droop and has since recovered.� She was found to have a large left atrial mass that was consistent with a myxoma.� Given her risk for ongoing
CVAs and risk of bleeding while taking anticoagulation, she is recommended for operative intervention for removal of this mass.
Hospital course:
Patient was admitted on 07/11 after discharge from [facility]. While at [facility] she was found to have multiple CVAs likely embolic from left atrial mass. At that time they recommended removal however, she had a psych event and demanded
discharge and came to [facility] for a second opinion. On patient was taken to the CV OR and returned to the CVICU on Levophed, Precedex, insulin, and intermittent Cardene infusions due to labile blood pressures. Overnight there was
concern for possible CVA and head CT was performed. However, while in CT symptoms resolved. She received 1 unit of packed red blood cells for acute blood loss anemia. On 3 postoperative day #1 patient was weaned off Precedex and was extubated
by 7:15 AM. Patient was found to have a large hiatal hernia with gastric dilatation therefore a nasogastric tube was inserted in the right nares for decompression. A total of 1600 mL came out of her stomach. She reported improved gastric comfort
and was started on a clear liquid diet. Bowers catheter and arterial line were removed, along with, right pleural chest tube was removed. Insulin drip was weaned off. Psychology was consulted and Depakote was discontinued. On 07/16 postoperative
day #2, psychiatry decreased Paxil to 40 mg daily and remaining chest tubes were discontinued. Patient was complaining of constipation and on abdominal x-ray large amounts of stool were seen. Therefore, an aggressive bowel movement was started.
She was given mineral oil p.o. and enema along with the standard bowel regimen. She had a small bowel movement after. On 07/17 postop day #3 patient was given magnesium citrate and had a large bowel movement. She was noted to have lethargy and
mild confusion, therefore, psychiatry decreased her Ativan. She was also found to be bradycardic in the mid 50s. Therefore amiodarone was decreased from 3 times daily to twice daily and Lopressor was decreased to 12.5 mg daily. With those
interventions patient mental status improved. On 07/18, postoperative day #4 patient went for a two-view chest x-ray which remained stable. She had some mild hyponatremia and was treated with 40 mg of oral Lasix. She will be discharged back to
[facility] with a short course of diuretics and she was deemed stable for discharge to a [facility] facility.
Home medication changes:
see below
Discharge Plan
-
Patient Disposition: Halfway/SNF
Discharge Diagnosis/Procedures: Left atrial myxoma
Condition: Fair
Diet: 2 Gram Sodium
Activity: As tolerated, With Walker and No strenuous activity
Driving Restrictions: Not until seen by your Dr
Bathing Restrictions: OK to Shower
Other Services: Cardiac Rehab
Specialty Instructions: Weigh Daily- Call MD for wt gain/loss 3 lbs overnight/5 lbs in 1 week
Activity Restrictions/Additional Instructions:
ACTIVITY:
-No strenuous activity: no heavy lifting, pushing, pulling anything over 15 pounds for one month
-continue to use stairs as tolerated
DRIVING RESTRICTIONS:
-No driving for one month or until approved by your surgeon
WOUND CARE:
-Shower daily. Use soap & water.
-No lotions, creams or powders on incision area.
DIET:
-continue a low fat/low cholesterol diet.
-IF you are diabetic, continue carb controlled diet.
CARDIAC REHAB:
-Please make appointment to start in 5-6 weeks with your local hospital program. (See Cardiac Rehabilitation Discharge Booklet).
SPECIALTY INSTRUCTIONS:
-Weigh yourself daily. Call your physician for any weight gain/loss of 3 lbs overnight or 5 lbs in one week.
-REPORT any clicking noise or uneven appearance of your sternum to your surgeon immediately.
-If you smoke, you are instructed to quit. The [place] smoking hotline phone number is [phone]
Referrals:
Bryanna Treviño at [facility] [Outside]
Caitlin Roberson MD [Family Provider] - in four to six weeks (Please make an appointment in four to six weeks. )
Yanick Aguilar MD [Active] - (You were followed by [facility] cardiologists during this admission. The cardiology office will call you on Friday to schedule a follow up visit. [phone]. )
Immanuel Younger MD [Active] - 08/20/23 2:00 pm
Prescriptions:
New
acetaminophen 325 mg Tablet
650 mg PO Q6HPRN PRN (Reason: mild pain,headache,temp >101F ) Qty: 0 0RF
polyethylene glycol 3350 [HealthyLax] 17 gram Powder In Packet
17 g PO BID Qty: 0 0RF
lorazepam 0.5 mg Tablet
0.25 mg PO BID Qty: 30 0RF
magnesium hydroxide 400 mg/5 mL Suspension
30 ml PO BIDPRN PRN (Reason: if no BM in three days) Qty: 0 0RF
bisacodyl 10 mg Suppository
10 mg [place] DAILYPRN PRN (Reason: constipation ) Qty: 0 0RF
paroxetine HCl 20 mg Tablet
40 mg PO DAILY Qty: 30 0RF
pantoprazole 40 mg Tablet,Delayed Release (Dr/Ec)
40 mg PO DAILY Qty: 0 0RF
metoprolol succinate 25 mg Tablet Extended Release 24 Hr
12.5 mg PO DAILY Qty: 0 0RF
Fiber Laxative (ca polycarbo) 625 mg tablet
1,250 mg PO DAILY Qty: 30 0RF
furosemide [Lasix] 20 mg tablet
20 mg PO DAILY Qty: 7 0RF
Rx Instructions:
Take daily for 7 days, then stop
potassium chloride 20 mEq/15 mL liquid
10 meq PO DAILY 7 Days Qty: 52.5 0RF
Rx Instructions:
take only while on lasix
Continued
cyanocobalamin (vitamin B-12) 1,000 mcg Tablet
1,000 mcg PO DAILY
fluticasone propionate 50 mcg/actuation [place],Suspension
1 spray INTRANASAL HS
cyclosporine [Restasis] 0.05 % Dropperette
1 drp RIGHT EYE BID
Saline Nasal 0.65 % Aerosol,Inola
1 spray INTRANASAL HS
rosuvastatin 20 mg Tablet
20 mg PO DAILY@1999
calcium carbonate-vitamin D3 [Caltrate with Vitamin D3] 600 mg-20 mcg (800 unit) Tablet
1 tab PO DAILY
biotin 5,000 mcg Tablet,Chewable
5,000 mcg PO DAILY
Aspir-81
81 mg PO DAILY
sennosides [senna] 8.6 mg Tablet
17.2 mg PO DAILY@1999
Centrum Silver Women 8 mg iron-400 mcg-50 mcg Tablet
1 tab PO DAILY
Discontinued
losartan 50 mg Tablet
50 mg PO DAILY
paroxetine HCl 10 mg Tablet
10 mg PO DAILY
Rx Instructions:
07/12/2023, take with 40 mg for a total of 50 mg.
polyethylene glycol 3350 [Miralax] 17 gram Powder In Packet
8.5 g PO DAILYPRN PRN (Reason: constipation)
losartan 25 mg Tablet
25 mg PO DAILY@1999
omeprazole 20 mg Capsule,Delayed Release(Dr/Ec)
20 mg PO DAILY
paroxetine HCl 40 mg Tablet
40 mg PO DAILY
Rx Instructions:
07/12/2023, take with 10 mg for a total of 50 mg.
Depakote ER
250 mg PO Q12H
lorazepam
0.25 mg PO TID
Discharge Orders:
Discharge Patient (As Directed); Ordered 07/19/23
Ordered By: Yamilet Skinner
Care Plan Goals
Care Plan Goals:
Problem: Readiness for enhanced knowledge related to diagnosis and treatment plan
Goal: Understand your diagnosis and treatment plan needs, including medications if applicable.
Instructions: Know your diagnosis, underlying causes and treatment plan options, including medications if applicable. Consult with your health care team to learn about your diagnosis and treatment plan, including medications if applicable.
--- NOTE | 2023-07-19 09:44 | PTCARENOTE ---
RIJ Cordis removed per order.
[2023-07-19 11:52] LABS: Glucose - Point of Care 174 mg/dl (70-99)
--- NOTE | 2023-07-19 12:02 | PTCARENOTE ---
NSR on monitor and VSS; assessment unchanged; daughter at bedside.
[2023-07-19] MEDS: NOVOLOG FLEXPEN-MODERATE RESISTANCE 1 UNITS SC (12:42)
--- NOTE | 2023-07-19 13:52 | PTCARENOTE ---
V wire cut per order; pt belongings packed and given to daughter.
--- NOTE | 2023-07-19 15:22 | PTCARENOTE ---
Pt sent to [facility] via wheelchair van; discharge paperwork given to milk wagon driver; daughter to met pt at [facility].
== END 2023-07-19 15:40 | DRG 229 ==
LOC: CVICU 15:59
PROVIDERS: Clinical Nurse Specialist Acute Care; Clinical Nurse Specialist Family Health; Hospitalist; Internal Medicine; Internal Medicine Interventional Cardiology; Nurse Practitioner; Physician Assistant Medical; Psychiatry & Neurology Psychiatry; ADMITTING PHYSICIAN Internal Medicine; ATTENDING PHYSICIAN Thoracic Surgery (Cardiothoracic Vascular Surgery); CONSULT PHYSICIAN Internal Medicine Cardiovascular Disease; CONSULT PHYSICIAN Internal Medicine Critical Care Medicine; CONSULT PHYSICIAN Psychiatry & Neurology Neurology; EMERGENCY PHYSICIAN Emergency Medicine; FAMILY PHYSICIAN Internal Medicine Geriatric Medicine; OTHER PHYSICIAN Internal Medicine Hematology & Oncology
PROC: B2111ZZ Fluoroscopy of Multiple Coronary Arteries using Low Osmolar Contrast (ICD-10-PCS; 2023-07-14)
PROC: 4A023N7 Measurement of Cardiac Sampling and Pressure, Left Heart, Percutaneous Approach (ICD-10-PCS; 2023-07-14)
PROC: B24BZZ4 Ultrasonography of Heart with Aorta, Transesophageal (ICD-10-PCS; 2023-07-15)
PROC: 02B70ZZ Excision of Left Atrium, Open Approach (ICD-10-PCS; 2023-07-15)
PROC: 02L70CK Occlusion of Left Atrial Appendage with Extraluminal Device, Open Approach (ICD-10-PCS; 2023-07-15)
PROC: 5A1935Z Respiratory Ventilation, Less than 24 Consecutive Hours (ICD-10-PCS; 2023-07-15)
PROC: 30233N1 Transfusion of Nonautologous Red Blood Cells into Peripheral Vein, Percutaneous Approach (ICD-10-PCS; 2023-07-15)
PROC: 5A1221Z Performance of Cardiac Output, Continuous (ICD-10-PCS; 2023-07-15)
DX: D15.1 Benign neoplasm of heart (principal); D62 Acute posthemorrhagic anemia; D68.09 Other von Willebrand disease; E87.1 Hypo-osmolality and hyponatremia; Z86.73 Personal history of transient ischemic attack (TIA), and cerebral infarction without residual deficits; I12.9 Hypertensive chronic kidney disease with stage 1 through stage 4 chronic kidney disease, or unspecified chronic kidney disease; N18.30 Chronic kidney disease, stage 3 unspecified; E78.00 Pure hypercholesterolemia, unspecified; K21.9 Gastro-esophageal reflux disease without esophagitis; K44.9 Diaphragmatic hernia without obstruction or gangrene; F22 Delusional disorders; F32.A Depression, unspecified; F41.9 Anxiety disorder, unspecified; I25.10 Atherosclerotic heart disease of native coronary artery without angina pectoris; R32 Unspecified urinary incontinence; D69.6 Thrombocytopenia, unspecified; Z66 Do not resuscitate
CPT/HCPCS: 88307; 36600; 70450; 71045; 71046; 71275; 74018; 74174; 80048; 80053; 80164; 81003; 81015; 82248; 82330; 82565; 82805; 82947; 82962; 83036; 83735; 84100; 84132; 84302; 84520; 85014; 85018; 85025; 85027; 85049; 85347; 85384; 85576; 85610; 85730; 86850; 86900; 86901; 86920; 87811; 93005; 93312; 93320; 93325; 93454; 93880; 94002; 94003; 97110; 97129; 97162; 97164; 97166; 97168; 97530; 97535; 99291; C1894; P9016; P9045; Q9967